=== PATIENT | female | born 1950 | race Caucasian/White ===

== ENCOUNTER → 2017-02-03 | Outpatient (CLI) | payer MEDICARE ==
--- NOTE | 2017-02-03 16:04 | US ---
EXAMINATION TYPE: US venous doppler duplex LE LT DATE OF EXAM: 02/03/2017 3:58 PM COMPARISON: US CLINICAL HISTORY: left lower ext, Pain, M79.672. Left foot pain and swelling SIDE PERFORMED: Left TECHNIQUE: The lower extremity deep venous system is examined utilizing real time linear array sonog ramon with graded compression, doppler sonography and color-flow sonography. VESSELS IMAGED: External Iliac Vein (EIV) Common Femoral Vein Deep Femoral Vein Greater Saphenous Vein * Femoral Vein Popliteal Vein Small Saphenous Vein * Proximal Calf Veins (* superficial vessels) Grayscale, color doppler, spectral doppler imaging performed of the deep veins of the left lower extr emity. There is normal flow, compressibility, vascular waveforms left lower extremity. Left Leg: Negative for DVT Results called to Maria Guadalupe at [facility] at time of exam IMPRESSION: No evidence for DVT at this time.
== END | disposition home or self-care (01) ==
LOC: RADUSWWP 15:41
PROVIDERS: ATTEND Internal Medicine
DX: M79.672 Pain in left foot (principal)

== ENCOUNTER → 2017-02-17 | Outpatient (CLI) | payer MEDICARE ==
--- NOTE | 2017-02-18 09:18 | MM ---
Reason for exam: screening (asymptomatic). Last mammogram was performed 1 year and 11 months ago. History: Patient is postmenopausal and has history of endometrial cancer at age 45. Took hormonal contraceptives for 1 year 6 months beginning at age 19. Taking estrogen for 14 years 11 months beginning at age 45. Physical Findings: A clinical breast exam by your physician is recommended on an annual basis and results should be correlated with mammographic findings. MG Screening Mammo w CAD Bilateral CC and MLO view(s) were taken. Prior study comparison: March 21, 2015, bilateral MG screening mammo w CAD. The breast tissue is heterogeneously dense. This may lower the sensitivity of mammography. Focal asymmetry in the right breat upper outer quadrant is stable. No significant changes when compared with prior studies. ASSESSMENT: Benign, BI-RAD 2 RECOMMENDATION: Routine screening mammogram of both breasts in 1 year.
== END ==
LOC: RADMAMWWP 11:11
PROVIDERS: ATTEND Internal Medicine
DX: Z12.31 Encounter for screening mammogram for malignant neoplasm of breast (principal)

== ENCOUNTER 2017-03-17 09:14 | Day surgery (SDC) | payer MEDICARE ==
[2017-03-15 16:07] VITALS: BMI 25.0
[~2017-03-17 09:14] MED LIST: LACTATED RINGERS 1,000 ML IV SCH; LIDOCAINE 1% 20 ML VIAL (10MG/ML) FOR IV START INTRADERMA PRN
[2017-03-17 09:45] VITALS: TEMP 98.3
[2017-03-17] MEDS ORDERED: fentaNYL (PF) 50 MCG/ML 2 ML AMP ONE (10:21)
[2017-03-17] MEDS ORDERED: MIDAZOLAM 2 MG/2 ML VIAL ONE (10:21)
[2017-03-17] MEDS ORDERED: PROPOFOL 10 MG/ML 20 ML VIAL IV ONE (10:21)
--- NOTE | 2017-03-17 10:40 | P.PCN ---
Date of Procedure: 03/17/17 Preoperative Diagnosis: Postoperative Diagnosis: Procedure(s) Performed: BRIEF HISTORY: Patient is a 66-year-old pleasant white female, scheduled for an elective colonoscopy as a part of screening for colorectal neoplasia. PROCEDURE PERFORMED: Colonoscopy. PREOPERATIVE DIAGNOSIS: Screening for colon cancer. IV sedation per Anesthesia. PROCEDURE: After informed consent was obtained, the patient, was brought into the endoscopy unit. IV sedation was administered by Anesthesia under continuous monitoring. Digital rectal examination was normal. Initially the Olympus CF- 160 flexible video colonoscope was then inserted in the rectum, gradually advanced into the cecum without any difficulty. Careful examination was performed as the scope was gradually being withdrawn. Ileocecal valve and the appendiceal orifice were visualized and appeared normal. Prep was excellent. Mucosa of the cecum, ascending colon, transverse colon, descending colon, sigmoid colon, and rectum appeared normal. Retroflexion was performed in the rectum and no lesions were seen. The patient tolerated the procedure well. IMPRESSION: Normal-appearing colon from rectum to cecum with no evidence of colorectal neoplasia. RECOMMENDATIONS: Findings of this examination were discussed with the patient as well as a family. She was advised to have a repeat screening colonoscopy in 10 years. Implants: Indications for Procedure: Operative Findings: Description of Procedure:
[2017-03-17 10:42] VITALS: RESP 16
[2017-03-17 11:13] VITALS: BP 111/76; PULSE 59
== END 2017-03-17 11:26 | disposition home or self-care (01) ==
LOC: ORWHC2ENDO 09:14
PROVIDERS: ATTEND Internal Medicine Gastroenterology
DX: Z12.11 Encounter for screening for malignant neoplasm of colon (principal); E78.5 Hyperlipidemia, unspecified; E07.9 Disorder of thyroid, unspecified; Z79.2 Long term (current) use of antibiotics; Z79.899 Other long term (current) drug therapy
CPT/HCPCS: J2250; J3010; J2704; G0121

== ENCOUNTER → 2017-04-13 | Outpatient (CLI) | payer MEDICARE ==
[2017-04-13 13:01] LABS: Blood Urea Nitrogen 16 mg/dL (7-17); Non-African American GFR(MDRD) >60 (>60 ml/min/1.73 sqM)
--- NOTE | 2017-04-15 12:56 | MR ---
EXAMINATION TYPE: MR brain wo/w con DATE OF EXAM: 04/13/2017 COMPARISON: Outside brain CT May 20, 2012. MRA brain May 30, 2013. HISTORY: nontraumatic subarachnoid hemorrhage, 5 year check-up hx of aneurysm TECHNIQUE: Multiplanar, multisequence images of the brain and brainstem is performed without and with IV contras t, utilizing 6 mL intravenous Gadavist . FINDINGS: Diffusion weighted images demonstrate no evidence of a recent infarct or other diffusion ab normality. There is no worrisome extra-axial fluid collection. The ventricular system and cisternal spaces are normal in size and appearance. The brain volume is age appropriate. No significant aranda e in ventricular size from outside CT is noted. Artifact from right frontal craniotomy is present. Ar tifact from aneurysm clip right MCA distribution anterior inferior temporal aspect is redemonstrated. There is interval removal of right-sided INSERT OPERATOR shunt catheter. There are focal areas of T2 hyperintensi ty in the deep and periventricular white matter. Lesions are nonspecific in appearance and distributi on but most likely on basis of product of chronic small vessel ischemic change. Midline structures demonstrate normal morphology. The craniocervical junction appears within normal limits. Post contrast images demonstrate no abnormal enhancement. The dural venous sinuses appear pa tent. The visualized sinuses are clear and the globes are intact. IMPRESSION: Artifact from postsurgical changes present. There is mild to moderate white matter change s felt on basis of product of chronic small vessel ischemic change. No suspicious enhancement is note d.
== END | disposition home or self-care (01) ==
LOC: RADMRIMAIN 12:32
PROVIDERS: ATTEND Internal Medicine
DX: I67.82 Cerebral ischemia (principal); Z98.890 Other specified postprocedural states
CPT/HCPCS: 82565; 84520; 70553; 36415; A9581

== ENCOUNTER → 2017-05-12 | Outpatient (CLI) | payer MEDICARE ==
[2017-05-12 16:11] LABS: Blood Urea Nitrogen 15 mg/dL (7-17); Non-African American GFR(MDRD) >60 (>60 ml/min/1.73 sqM)
--- NOTE | 2017-05-12 17:15 | CT ---
EXAMINATION TYPE: CT angio head DATE OF EXAM: 05/12/2017 4:57 PM COMPARISON: NONE HISTORY: Patient has no complaints at time of study. 5 year follow up study post aneurysm clipping. CT DLP: 1928 mGycm Automated exposure control for dose reduction was used. TECHNIQUE: Performed without and with IV Contrast, patient injected with 100 mL of Omnipaque 350. There are 3-D post processed images.. FINDINGS: There is metal artifact from aneurysm clip at the right side of the elem of Patel. There is arteri al flow in the anterior middle and posterior cerebral arteries. There is arterial flow in the vertebr obasilar artery system. There is metal artifact from the clip that obscures the supraclinoid right in ternal carotid artery. I see no sign of an aneurysm. There is no mass effect. There is no evidence of hemodynamically significant stenosis. There is right temporal craniotomy defect. There is some mild hypodensity in the inferior right frontal lobe consistent with encephalomalacia. There is no sign of intracranial hemorrhage. There is normal contrast opacification of the venous sinuses. Ventricles have normal size. IMPRESSION: POSTSURGICAL CHANGES WITH ANEURYSM CLIP ON THE RIGHT SIDE. I SEE NO COMPLICATING PROCESS. STABLE APPE ARANCE OF THE BRAIN COMPARED TO 05/20/2012. MINIMAL ENCEPHALOMALACIA IN THE INFERIOR RIGHT FRONTAL LO BE. NO ANEURYSM SEEN.
== END | disposition home or self-care (01) ==
LOC: RADCTMAIN 15:24
PROVIDERS: ATTEND Internal Medicine
DX: G93.89 Other specified disorders of brain (principal); Z98.890 Other specified postprocedural states
CPT/HCPCS: 82565; 84520; 70496; 36415; Q9967

== ENCOUNTER → 2017-06-09 | Outpatient (CLI) | payer MEDICARE ==
--- NOTE | 2017-06-09 13:41 | XR ---
EXAMINATION TYPE: XR chest 2V DATE OF EXAM: 06/09/2017 COMPARISON: 05/09/2012 HISTORY: Dry cough for 2 months TECHNIQUE: Frontal and lateral views of the chest are obtained. FINDINGS: There is no focal air space opacity, pleural effusion, or pneumothorax seen. The cardiac silhouette size is within normal limits. The osseous structures are intact. Minimal degenerative ch anges of the acromio clavicular joint are seen. IMPRESSION: No acute cardiopulmonary process.
== END | disposition home or self-care (01) ==
LOC: RADXRMAIN 10:51
PROVIDERS: ATTEND Internal Medicine
DX: J20.9 Acute bronchitis, unspecified (principal)
CPT/HCPCS: 71020

== ENCOUNTER → 2018-03-21 | Outpatient (CLI) | payer MEDICARE ==
--- NOTE | 2018-03-21 15:11 | BD ---
EXAMINATION TYPE: Axial Bone Density DATE OF EXAM: 03/21/2018 COMPARISON: Prior DEXA bone scan March 21, 2015 CLINICAL HISTORY: Disorder of bone per order. Height: 5 FT 3 IN Weight: 161 FRAX RISK QUESTIONS: RISK FACTORS HISTORY OF: Family History of Osteoporosis: YES Active: YES Postmenopausal woman: AGE 46 Take estrogen and/or progesterone medications: YES PREMARIN How lon YEARS Lost more than 2 inches in height since high school: YES MEDICATIONS: Thyroid Medications: YES Which medication: SYNTHROID How Long: OVER 30 YEARS Additional Medications: SYNTHROID, PRAVASTATIN Additional History: EXAM MEASUREMENTS: Bone mineral densitometry was performed using the [employer] System. Bone mineral density as measured about the Lumbar spine is: ----- L1-L4(G/cm2): 1.134 T Score Values are as follows: ----- L2: -1.0 ----- L3: -0.8 ----- L4: 1.0 ----- L1-L4: -0.4 Bone mineral density has: INCREASED 6.5% SINCE STUDY 2014 Bone mineral density about the R hip (g/cm2): 0.995 Bone mineral density about the L hip (g/cm2): 1.018 T Score values are as follows: -----R Neck: -0.3 -----L Neck: -0.1 -----R Total: -1.0 -----L Total: -0.6 Bone mineral density has: INCREASED 2.5 %SINCE STUDY 2014 IMPRESSION: Normal (Values between +1 and -1 indicate normal bone mass) range currently. Bone density is increas ed or improved from prior. Consider repeating this study in 5 years or sooner if there is some new cl inical indication. NOTE: T-SCORE=SD OF THE YOUNG ADULT MEAN.
--- NOTE | 2018-03-22 13:52 | MM ---
Reason for exam: screening (asymptomatic). Last mammogram was performed 1 year and 1 month ago. History: Patient is postmenopausal and has history of endometrial cancer at age 45. Took hormonal contraceptives for 1 year 6 months beginning at age 19. Taking estrogen for 14 years 11 months beginning at age 45. Physical Findings: A clinical breast exam by your physician is recommended on an annual basis and results should be correlated with mammographic findings. MG Screening Mammo w CAD Bilateral CC and MLO view(s) were taken. Technologist: RT Delia (R)(M) Prior study comparison: February 17, 2017, bilateral MG screening mammo w CAD. March 21, 2015, bilateral MG screening mammo w CAD. The breast tissue is heterogeneously dense. This may lower the sensitivity of mammography. No significant changes when compared with prior studies. ASSESSMENT: Benign, BI-RAD 2 RECOMMENDATION: Routine screening mammogram of both breasts in 1 year.
== END | disposition home or self-care (01) ==
LOC: RADMAMWWP 13:47
PROVIDERS: ATTEND Internal Medicine
DX: Z12.31 Encounter for screening mammogram for malignant neoplasm of breast (principal); M85.9 Disorder of bone density and structure, unspecified
CPT/HCPCS: 77067; 77080

== ENCOUNTER → 2018-12-06 | Outpatient (CLI) | payer MEDICARE ==
[2018-12-06 10:51] LABS: Basophils # (A) 0.1 k/uL (0-0.2); Basophils % (A) 1 %; Eosinophils # (A) 0.8 k/uL (0-0.7); Eosinophils % (A) 9 %; HCT 39.7 % (34.0-46.0); Lymphocytes # (A) 2.1 k/uL (1.0-4.8); Lymphocytes % (A) 27 %; MCH 31.4 pg (25.0-35.0); MCHC 32.7 g/dL (31.0-37.0); Mean Platelet Volume 8.5; Monocytes # (A) 0.4 k/uL (0-1.0); Monocytes % (A) 5 %; Neutrophils # (A) 4.4 k/uL (1.3-7.7); Neutrophils % (A) 54 %; Platelet Count 323 k/uL (150-450); RBC 4.14 m/uL (3.80-5.40); RDW 13.9 % (11.5-15.5)
[2018-12-06 17:28] LABS: Albumin 3.8 g/dL (3.80-4.90); Albumin/Globulin Ratio 1.73 (1.60-3.17); Anion Gap 7.9 mmol/L (4.00-12.00); Carbon Dioxide 26.1 mmol/L (21.6-31.8); Globulin 2.2 g/dL (1.6-3.3); Potassium 4.7 mmol/L (3.5-5.5); Total Bilirubin 0.3 mg/dL (0.2-1.2)
[2018-12-06 17:32] LABS: T4, Free (Free Thyroxine) 1.3 ng/dL (0.80-1.80)
[2018-12-06 19:09] LABS: Hemoglobin A1C 5.9 % (4.0-6.0)
== END | disposition home or self-care (01) ==
LOC: LABWHC1 09:29
PROVIDERS: ATTEND Internal Medicine
DX: E78.2 Mixed hyperlipidemia (principal); E03.9 Hypothyroidism, unspecified; E55.9 Vitamin D deficiency, unspecified; J44.9 Chronic obstructive pulmonary disease, unspecified; J30.9 Allergic rhinitis, unspecified
CPT/HCPCS: 36415; 80053; 80061; 82306; 82550; 83036; 84439; 84443; 85025

== ENCOUNTER → 2019-02-15 | Outpatient (CLI) | payer MEDICARE ==
--- NOTE | 2019-02-15 14:05 | XR ---
EXAMINATION TYPE: XR lumbar spine 2 or 3V DATE OF EXAM: 02/15/2019 CLINICAL HISTORY: pain TECHNIQUE: Three views of the lumbar spine are submitted. COMPARISON: None. FINDINGS: There are 5 lumbar type vertebral bodies identified. The lumbar spine shows satisfactory alignment w ithout evidence of acute fracture or dislocation. Vertebral body heights are within normal limits. Moderate degenerative disc space narrowing at L4-5 and L5-S1. Facet joint arthropathy. Mild curvature convex to the right. Moderate fecal stasis noted. The overlying soft tissue appears unremarkable. IMPRESSION: No acute fracture or dislocation is seen in the lumbar spine. ICD 10 NO FRACTURE, INITIAL EVALUATION
== END | disposition home or self-care (01) ==
LOC: RADXRMAIN 11:10
PROVIDERS: ATTEND Internal Medicine
DX: M47.897 Other spondylosis, lumbosacral region (principal)
CPT/HCPCS: 72100

== ENCOUNTER → 2019-03-13 | Outpatient (CLI) | payer MEDICARE ==
--- NOTE | 2019-03-13 11:21 | XR ---
EXAMINATION TYPE: XR Hip Complete RT DATE OF EXAM: 03/13/2019 COMPARISON: NONE HISTORY: Pain TECHNIQUE: 2 views submitted FINDINGS: There is no evidence of erosive change or acute fracture. Mild concentric narrowing the joint space. Calcifications along the greater trochanter. Calcifications in the pelvis noted. IMPRESSION: 1. Mild arthropathy. There is calcification along the greater trochanter which can be associated with calcific tendinosis or trochanteric bursitis..
== END | disposition home or self-care (01) ==
LOC: RADXRMAIN 10:43
PROVIDERS: ATTEND Internal Medicine
DX: M16.11 Unilateral primary osteoarthritis, right hip (principal); M25.851 Other specified joint disorders, right hip
CPT/HCPCS: 73502

== ENCOUNTER → 2019-06-13 | Outpatient (CLI) | payer MEDICARE ==
--- NOTE | 2019-06-13 13:54 | XR ---
Cervical spine HISTORY: Radiculopathy and spondylosis 5 views of the cervical spine Comparison prior exam 03/30/2012 Alignment is essentially stable, there is an anterolisthesis grade 1 C3-4, C4-5, C6-7 and loss of dis c height present at C5-6 greater than C4-5, there is multilevel spondylosis. Cervical vertebral jose s show preserved height. Bone mineralization is reduced. Prevertebral soft tissues are normal. Facet arthropathy changes are present. There is foraminal encroachment on the right at C3-4, C4-5 and C5-6, left at C5-6 due to uncovertebral joint hypertrophy. Loss of the normal cervical lordosis. IMPRESSION: Degenerative disc disease, facet arthropathy similar to prior exam.
== END | disposition home or self-care (01) ==
LOC: RADXRMAIN 11:50
PROVIDERS: ATTEND Internal Medicine
DX: M50.10 Cervical disc disorder with radiculopathy, unspecified cervical region (principal); M46.92 Unspecified inflammatory spondylopathy, cervical region; R92.8 Other abnormal and inconclusive findings on diagnostic imaging of breast
CPT/HCPCS: 72050

== ENCOUNTER → 2019-06-21 | Outpatient (CLI) | payer MEDICARE ==
--- NOTE | 2019-06-21 16:07 | MR ---
MRI CERVICAL SPINE: CLINICAL HISTORY: Spondylosis with radiculopathy. Neck pain and stiffness for 2 years. TECHNIQUE: Multiplanar, multisequence imaging of the cervical spine is performed without IV contrast. COMPARISON: Prior MRI cervical spine March 10, 2016. FINDINGS: Sagittal images of the cervical spine show the craniocervical junction to remain within nor mal limits. The cervical and upper thoracic spinal cord remains normal in course, caliber, and signa l. There is persistent grade 1 retrolisthesis C5 on C6. There is persistent moderate disc space narro wing and mild spurring C5-C6 level. Vertebral body heights are maintained. The bone marrow signal in tensity is within normal limits. Axial images at C2-C3 level are thought to show stable mild uncovertebral facet degenerative changes bilaterally. Axial images at C3-C4 level show uncovertebral facet degenerative changes bilaterally causing mild ri ght-sided neural foraminal narrowing. No significant change from prior. Axial images at C4-C5 level show posterior broad-based disc protrusion and uncovertebral facet degene rative changes, there is effacement of the anterior thecal sac and mild facet neural foraminal narrow ing redemonstrated. No significant change from prior. Axial images at C5-C6 level shows spondylolisthesis and uncovertebral facet degenerative changes effa cing anterior thecal sac and causing moderate bilateral neural foraminal narrowing. No significant ch keila from prior. Axial images at C6-C7 level shows left paracentral disc protrusion effacing the anterolateral thecal sac and causing mild bilateral neural foraminal narrowing. No significant change from prior. Axial images at C7-T1 level are felt to remain within normal limits. IMPRESSION: Multilevel degenerative changes as detailed above most prominent at C5-C6 level without s ignificant change or progression from 2016 MRI noted
== END | disposition home or self-care (01) ==
LOC: RADMRIMAIN 06:15
PROVIDERS: ATTEND Internal Medicine
DX: M47.22 Other spondylosis with radiculopathy, cervical region (principal)
CPT/HCPCS: 72141

== ENCOUNTER → 2021-04-28 | Outpatient (CLI) | payer MEDICARE ==
--- NOTE | 2021-04-28 14:20 | XR ---
Thoracic spine HISTORY: M47.816, back pain 3 views of the thoracic spine Degenerative disc changes are noted incidentally in the cervical spine. Thoracic vertebral bodies show preserved height, there is a mild spinal curvature. Bone mineralizatio n is reduced. There is multilevel spondylosis. Loss of disc height and intervertebral levels is noted . IMPRESSION: Osteopenia and degenerative disc disease.
--- NOTE | 2021-04-28 14:22 | XR ---
Lumbar spine HISTORY: Back pain 3 views of lumbar spine are correlation a prior exam 02/15/2019 There is no significant interval change. Lumbar vertebral bodies show stable height. There is anterol isthesis grade 1 L4-5. Bone mineralization is reduced. Sclerosis is present in the posterior elements of the lower lumbar spine. Dense vascular calcifications are present within the aortoiliac distribut ion. Loss of disc height is present at the intervertebral levels. There is multilevel spondylosis. Ab normal vascular calcifications present within the pelvis. IMPRESSION: Degenerative disc disease, facet arthropathy with spondylolisthesis L4-5. Osteopenia.
== END | disposition home or self-care (01) ==
LOC: RADXRMAIN 11:07
PROVIDERS: ATTEND Internal Medicine
DX: M51.34 Other intervertebral disc degeneration, thoracic region (principal); M85.88 Other specified disorders of bone density and structure, other site; M51.36 Other intervertebral disc degeneration, lumbar region; M47.816 Spondylosis without myelopathy or radiculopathy, lumbar region; M43.16 Spondylolisthesis, lumbar region
CPT/HCPCS: 72070; 72100

== ENCOUNTER → 2021-05-13 | Outpatient (CLI) | payer MEDICARE ==
--- NOTE | 2021-05-13 14:40 | BD ---
EXAMINATION TYPE: Axial Bone Density DATE OF EXAM: 05/13/2021 COMPARISON: 03/21/2018 CLINICAL HISTORY: Postmenopausal female. Age related osteoporosis. Height: 62.7 IN Weight: 164 LBS RISK FACTORS HISTORY OF: Active: YES Postmenopausal woman: TOTAL HYST AGE 43 Take estrogen and/or progesterone medications: YES How lon+ YEARS MEDICATIONS: Thyroid Medications: YES Which medication: Synthroid How Lon+ YEARS Additional Medications: SYNTHROID, CALCIUM, VIT D, ESTROGEN, PRAVASTATIN EXAM MEASUREMENTS: Bone mineral densitometry was performed using the GPal System. Bone mineral density as measured about the Lumbar spine is: ----- L1-L4(G/cm2): 1.169 T Score Values are as follows: ----- L2: -0.9 ----- L3: -0.1 ----- L4: 0.9 ----- L1-L4: -0.1 Bone mineral density has: Increased 2.9% since study of: 03/21/2018 Bone mineral density about the R hip (g/cm2): 0.972 Bone mineral density about the L hip (g/cm2): 1.026 T Score values are as follows: -----R Neck: -0.5 -----L Neck: -0.1 -----R Total: -1.0 -----L Total: -0.6 Bone mineral density has: Increased 0.8% since study of: 03/21/2018 IMPRESSION: Normal (Values between +1 and -1 indicate normal bone mass). Consider repeating this study in 5 year s or sooner if there is some new clinical indication. NOTE: T-SCORE=SD OF THE YOUNG ADULT MEAN.
--- NOTE | 2021-05-15 14:07 | MM ---
Reason for exam: screening (asymptomatic). Last mammogram was performed 3 years and 2 months ago. History: Patient is postmenopausal and has history of endometrial cancer at age 45. Took hormonal contraceptives for 1 year 6 months beginning at age 19. Taking estrogen for 25 years beginning at age 45. Physical Findings: A clinical breast exam by your physician is recommended on an annual basis and results should be correlated with mammographic findings. MG Screening Mammo w CAD Bilateral CC and MLO view(s) were taken. Prior study comparison: March 21, 2018, bilateral MG screening mammo w CAD. February 17, 2017, bilateral MG screening mammo w CAD. The breast tissue is heterogeneously dense. This may lower the sensitivity of mammography. There is chronic nodularity in the right breast. No significant changes when compared with prior studies. ASSESSMENT: Benign, BI-RAD 2 RECOMMENDATION: Routine screening mammogram of both breasts in 1 year.
== END | disposition home or self-care (01) ==
LOC: RADMAMWWP 12:56
PROVIDERS: ATTEND Internal Medicine
DX: Z12.31 Encounter for screening mammogram for malignant neoplasm of breast (principal); Z78.0 Asymptomatic menopausal state; Z85.42 Personal history of malignant neoplasm of other parts of uterus
CPT/HCPCS: 77067; 77080

== ENCOUNTER 2021-07-26 14:19 | Emergency (ER) | payer MEDICARE ==
[2021-07-26 15:58] LABS: Appearance,Urine Turbid (Clear); Bilirubin,Urine Negative (Negative); Blood,Urine Large (Negative); Color,Urine Red; Glucose,Urine (UA) Negative (Negative); Ketones,Urine Negative (Negative); Leukocyte Esterase,Urine Large (Negative); Nitrite,Urine Negative (Negative); PH, Urine 5.5 (5.0-8.0); Protein,Urine 2+ (Negative); RBC,Urine >182 /hpf (0-5); Specific Gravity,Urine 1.018 (1.001-1.035); Urobilinogen,Urine <2.0 mg/dL (<2.0); WBC,Urine >182 /hpf (0-5)
--- NOTE | 2021-07-26 16:59 | ED ---
General Adult HPI - General Chief complaint: Urogenital Stated complaint: Bladder Infection Time Seen by Provider: 07/26/21 16:45 Source: patient, RN notes reviewed, old records reviewed Mode of arrival: ambulatory Limitations: no limitations - History of Present Illness Initial comments: 70-year-old well-appearing female, alert and oriented x4, presents to the emergency room with complaints of dysuria that started this morning. She states that she noticed some blood in the urine and has been having frequency in small amounts. She denies any fevers or back pain. No fevers, back pain, nausea, vomiting or diarrhea. She states that she has had urinary tract infections in the past and feels similar. -: days(s) (1) Location: pelvis Severity scale (1-10): 2 Quality: burning (During urination) Associated Symptoms: denies other symptoms Treatments Prior to Arrival: none - Related Data Home Medications Medication Instructions Recorded Confirmed Estrogens, Conjugated [Premarin] 0.9 mg PO HS 03/15/17 03/17/17 Levothyroxine Sodium [Synthroid] 125 mcg PO HS 03/15/17 03/17/17 Pravastatin Sodium [Pravachol] 80 mg PO HS 03/15/17 03/17/17 Sulfamethox-Tmp 800-160Mg [Bactrim 1 tab PO Q12HR 03/16/17 03/17/17 DS 800-160 mg] Previous Rx's Medication Instructions Recorded Sulfamethox-Tmp 800-160Mg [Bactrim 1 each PO Q12HR 5 Days #10 tab 07/26/21 Ds] Allergies Allergy/AdvReac Type Severity Reaction Status Date / Time No Known Allergies Allergy Verified 07/26/21 15:38 Review of Systems ROS Statement: Those systems with pertinent positive or pertinent negative responses have been documented in the HPI. ROS Other: All systems not noted in ROS Statement are negative. Past Medical History Past Medical History: Cancer, Thyroid Disorder Additional Past Medical History / Comment(s): RUPTURED BRAIN ANEURYSM, OVARIAN CANCER History of Any Multi-Drug Resistant Organisms: None Reported Past Surgical History: Hysterectomy, Tonsillectomy Additional Past Surgical History / Comment(s): BSO, BRAIN SURGERY-HAS A CLIP IN, Past Anesthesia/Blood Transfusion Reactions: No Reported Reaction Past Psychological History: No Psychological Hx Reported Smoking Status: Former smoker Past Alcohol Use History: Occasional Past Drug Use History: None Reported - Past Family History Mother Family Medical History: No Reported History Father Family Medical History: Deep Vein Thrombosis (DVT) General Exam Limitations: no limitations General appearance: alert, in no apparent distress Head exam: Present: atraumatic, normocephalic, normal inspection Eye exam: Present: normal appearance, EOMI Neck exam: Present: normal inspection, full ROM. Absent: tenderness, meningismus, lymphadenopathy Respiratory exam: Present: normal lung sounds bilaterally. Absent: respiratory distress, wheezes, rales, rhonchi, stridor Cardiovascular Exam: Present: regular rate, normal rhythm, normal heart sounds. Absent: systolic murmur, diastolic murmur, rubs, gallop, clicks Back exam: Absent: tenderness, CVA tenderness (R), CVA tenderness (L) Neurological exam: Present: alert, oriented X3, normal gait Psychiatric exam: Present: normal affect, normal mood Skin exam: Present: warm, dry, intact, normal color. Absent: rash, cyanosis, diaphoretic Course Vital Signs 07/26/21 15:35 Temperature 98.2 F Pulse Rate 75 Respiratory 16 Rate Blood Pressure 134/66 O2 Sat by Pulse 99 Oximetry Medical Decision Making - Medical Decision Making 70-year-old well-appearing female presents emergency room with complaints of dysuria started this morning with hematuria. Patient states that she has had history of urinary tract infections in the past. She says that she has done well on Bactrim. She denies any fevers, abdominal pain, nausea, vomiting or diarrhea. She has no CVA tenderness. Urinalysis shows greater than 182 WBCs and will be treated with Bactrim and directed to follow up with her primary care doctor this week. Patient was offered Pyridium and declined. Return to the emergency room with any new or worsening symptoms. Case discussed with Dr. Dixon - Lab Data Lab Results 07/26/21 Range/Units 15:40 Urine Color Red Urine Appearance Turbid H (Clear) Urine pH 5.5 (5.0-8.0) Ur Specific [place] 1.018 (1.001-1.035) Urine Protein 2+ H (Negative) Urine Glucose (UA) Negative (Negative) Urine Ketones Negative (Negative) Urine Blood Large H (Negative) Urine Nitrite Negative (Negative) Urine Bilirubin Negative (Negative) Urine Urobilinogen <2.0 (<2.0) mg/dL Ur Leukocyte Esterase Large H (Negative) Urine RBC >182 H (0-5) /hpf Urine WBC >182 H (0-5) /hpf Urine WBC Clumps Many H (None) /hpf Disposition Clinical Impression: Urinary tract infection Disposition: HOME SELF-CARE Condition: Good Instructions (If sedation given, give patient instructions): Urinary Tract Infection in Women (ED) Additional Instructions: Take antibiotics as prescribed, increase your fluid intake. Follow-up with the primary care doctor next week. Return to the emergency room with any new or worsening symptoms. Prescriptions: Sulfamethox-Tmp 800-160Mg [Bactrim Ds] 1 each PO Q12HR 5 Days #10 tab Is patient prescribed a controlled substance at d/c from ED?: No Referrals: Chelsie Key MD [Primary Care Provider] - 1-2 days Time of Disposition: 16:59
[2021-07-26 17:32] VITALS: BP 141/81; PULSE 71; RESP 18; TEMP 98.1
[2021-07-26] MEDS: SULFAMETHOX-TMP 800-160MG 1 EACH TAB PO STA (17:42)
[2021-07-26] MEDS: SULFAMETH-TMP DS STARTER PACK 2 TAB BTL PO STA (17:42)
== END 2021-07-26 17:49 | disposition home or self-care (01) ==
LOC: EC 14:19
DX: N39.0 Urinary tract infection, site not specified (principal); Z87.891 Personal history of nicotine dependence; Z79.890 Hormone replacement therapy; Z79.899 Other long term (current) drug therapy
CPT/HCPCS: 81001; 87086; 99283

== ENCOUNTER 2021-08-22 07:35 | Day surgery (SDC) | payer MEDICARE ==
[2021-08-19 10:17] VITALS: BMI 22.6
[~2021-08-22 07:35] MED LIST changes: -LIDOCAINE 1% 20 ML VIAL (10MG/ML) FOR IV START INTRADERMA PRN
[2021-08-22 08:27] VITALS: RESP 16; TEMP 97.5
[2021-08-22] MEDS ORDERED: LIDOCAINE 1% (10MG/ML) FOR IV START INTRADERMA ONE (08:29)
[2021-08-22] MEDS ORDERED: PROPOFOL 10 MG/ML 20 ML VIAL IV ONE (09:34)
[2021-08-22] MEDS ORDERED: LIDOCAINE 1% INJ 10MG/ML (20 ML MDV) ONE (09:34)
--- NOTE | 2021-08-22 09:56 | P.PCN ---
Date of Procedure: 08/22/21 Procedure(s) Performed: BRIEF HISTORY: Patient is a 68-year-old pleasant white female scheduled for an elective colonoscopy as a part of screening for colorectal neoplasiacolorectal neoplasia. Her last colonoscopy was 10 years ago. PROCEDURE PERFORMED: Colonoscopy snare polypectomy. PREOPERATIVE DIAGNOSIS: Screening for colon cancer. IV sedation per Anesthesia. PROCEDURE: After informed consent was obtained, the patient, was brought into the endoscopy unit. IV sedation was administered by Anesthesia under continuous monitoring. Digital rectal examination was normal. Initially the Olympus CF-160 flexible video colonoscope was then inserted in the rectum, gradually advanced into the cecum without any difficulty. Careful examination was performed as the scope was gradually being withdrawn. Ileocecal valve and the appendiceal orifice were visualized and appeared normal. Prep was excellent. Mucosa of the cecum, ascending colon, transverse colon, descending colon, appeared normal. In the sigmoid colon there were 2 polyps measuring 3 mm and 5 mm both of which were removed by snare polypectomy. Rest of the sigmoid colon, and rectum appeared normal. Retroflexion was performed in the rectum and no lesions were seen. The patient tolerated the procedure well. IMPRESSION: 3 mm and 5 mm sigmoid: Polyp status post polypectomy Rest of the colon appeared normal RECOMMENDATIONS: Findings of this examination were discussed with the patient as well as a family. She was advised to follow with the biopsy results. If the biopsy results adenoma she can have a repeat colonoscopy in 5 years.
[2021-08-22 10:19] VITALS: BP 123/75; PULSE 58
== END 2021-08-22 10:34 | disposition home or self-care (01) ==
LOC: ORWHC2ENDO 07:35
PROVIDERS: ATTEND Internal Medicine Gastroenterology
DX: Z12.11 Encounter for screening for malignant neoplasm of colon (principal); D12.5 Benign neoplasm of sigmoid colon; K21.9 Gastro-esophageal reflux disease without esophagitis; E07.9 Disorder of thyroid, unspecified; Z86.79 Personal history of other diseases of the circulatory system; Z79.899 Other long term (current) drug therapy; Z79.890 Hormone replacement therapy; Z97.2 Presence of dental prosthetic device (complete) (partial)
CPT/HCPCS: 88305; 45385; J2001; J2704

== ENCOUNTER → 2022-01-02 | Outpatient (CLI) | payer MEDICARE ==
--- NOTE | 2022-01-02 10:22 | CT ---
EXAMINATION TYPE: CT brain wo/w con DATE OF EXAM: 01/02/2022 COMPARISON: Prior CTA had May 12, 2017 HISTORY: Hx of brain aneurysm. Hx of sx to brain in 2012. Patient suffering from memory loss CT DLP: 2180.8 mGycm Automated exposure control for dose reduction was used. CONTRAST: CT scan of the head is performed without and with IV Contrast, patient injected with 70ML mL of Isovu e 300. FINDINGS: Persistent right frontal craniotomy and inferior temporal craniectomy changes. No acute int racranial hemorrhage or midline shift. Mild ventricular and sulcal prominence redemonstrated. Persist ent artifact from aneurysm clip right suprasellar level. There is focal encephalomalacia involving in ferior right frontal lobe redemonstrated. Mild to moderate low-attenuation in the deep and periventri cular white matter. No enhancing masses are seen. The globes are intact and the visualized sinuses ar e clear. IMPRESSION: Extensive surgical change redemonstrated. Mild diffuse cerebral atrophy and moderate floral designer fredi small vessel ischemic change redemonstrated. No abnormal enhancing masses.
== END | disposition home or self-care (01) ==
LOC: RADCTMAIN 08:17
PROVIDERS: ATTEND Internal Medicine
DX: R41.3 Other amnesia (principal); I67.82 Cerebral ischemia
CPT/HCPCS: 82565; 84520; 70470; 36415; Q9967

== ENCOUNTER → 2022-01-09 | Outpatient (CLI) | payer MEDICARE ==
--- NOTE | 2022-01-09 13:41 | US ---
EXAMINATION TYPE: US carotid duplex BILAT DATE OF EXAM: 01/09/2022 COMPARISON: NONE CLINICAL HISTORY: I67.1 BRAIN ANEURYSM I73.9 PVD. EXAM MEASUREMENTS: RIGHT: Peak Systolic Velocity (PSV) cm/sec ----- Right CCA: 69.4 ----- Right ICA: 98.0 ----- Right ECA: 101.8 ICA/CCA ratio: 1.4 RIGHT: End Diastole cm/sec ----- Right CCA: 16.2 ----- Right ICA: 17.8 ----- Right ECA: 14.5 LEFT: Peak Systolic Velocity (PSV) cm/sec ----- Left CCA: 61.0 ----- Left ICA: 90.5 ----- Left ECA: 29.3 ICA/CCA ratio: 1.5 LEFT: End Diastole cm/sec ----- Left CCA: 14.0 ----- Left ICA: 29.3 ----- Left ECA: 8.3 VERTEBRALS (direction of flow): Right Vertebral: Antegrade Left Vertebral: Antegrade Rhythm: Normal Mild atherosclerotic changes with no significant velocity increases seen bilaterally. Some plaquing is present within the left carotid system. IMPRESSION: 1. Atheromatous plaquing without significant flow-limiting stenosis. Criteria for Assigning % of Stenosis / Diameter reduction (Estimation based on the indirect measurements of the internal carotid artery velocities (ICA PSV). 1. Normal (no stenosis)=ICA PSV < 125 cm/s: ratio < 2.0: ICA EDV<40 cm/s. 2. Less than 50% stenosis=ICA PSV < 125 cm/s: ratio < 2.0: ICA EDV<40 cm/s. 3. 50 to 69% stenosis=ICA PSV of 125 to 230 cm/s: ration 2.0 ? 4.0: ICA EDV 40-100 cm/s. 4. Greater than 70% stenosis to near occlusion= ICA PSV > 230 cm/s: ratio > 4.0: ICA EDV > 100 cm/s. 5. Near occlusion= ICA PSV velocities may be low or undetectable: variable ratio and ICA EDV. 6. Total occlusion=unable to detect flow.
--- NOTE | 2022-01-10 10:52 | CA ---
Transthoracic Echo Report Name: Connie Cerrato Age: 71 Gender: F : 1950 Exam Date: 01/09/2022 14:14 Exam Location: [facility] Ht (in): 65 Wt (lb): 140 Ordering Physician: Chelsie Key MD Attending/Referring Phys: Client Evaluator Estefania Martin RDCS Procedure CPT: Indications: I67.1 Cardiac Hx: Technical Quality: Good Contrast 1: N/A Total Dose (mL): Contrast 2: Total Dose (mL): MEASUREMENTS (Male / Female) Normal Values 2D ECHO LV Diastolic Diameter PLAX 4.4 cm 4.2 - 5.9 / 3.9 - 5.3 cm LV Systolic Diameter PLAX 3.4 cm IVS Diastolic Thickness 0.9 cm 0.6 - 1.0 / 0.6 - 0.9 cm LVPW Diastolic Thickness 1.0 cm 0.6 - 1.0 / 0.6 - 0.9 cm LV Relative Wall Thickness 0.4 RV Internal Dim ED PLAX 2.0 cm LA Volume 40.4 cm??? 18 - 58 / 22 - 52 cm??? M-MODE Aortic Root Diameter MM 2.8 cm LA Systolic Diameter MM 3.6 cm LA Ao Ratio MM 1.3 MV E Point Septal Separation 0.4 cm AV Cusp Separation MM 1.3 cm DOPPLER MV Area PHT 3.2 cm??? Mitral E Point Velocity 73.9 cm/s Mitral A Point Velocity 85.8 cm/s Mitral E to A Ratio 0.9 MV Deceleration Time 235.6 ms MV E' Velocity 7.1 cm/s Mitral E to MV E' Ratio 10.4 TR Peak Velocity 250.7 cm/s TR Peak Gradient 25.1 mmHg Right Ventricular Systolic Press 30.1 mmHg FINDINGS Left Ventricle Normal left ventricular size, wall thickness, systolic function with no obvious regional wall motion abnormalities. The ejection fraction is visually estimated at 50-55 %. Right Ventricle The right ventricle is normal in size and function. Right Atrium The right atrium is normal in size. Left Atrium The left atrium is normal in size. Mitral Valve Structurally normal mitral valve without significant stenosis or prolapse. There is no mitral regurgitation. Aortic Valve Structurally normal aortic valve without significant sclerosis or stenosis. There is no aortic regurgitation. Tricuspid Valve Structurally normal tricuspid valve without significant stenosis. Pulmonary artery systolic pressure is normal. Pulmonic Valve Structurally normal pulmonic valve without significant stenosis. There is no pulmonic regurgitation. Pericardium Normal pericardium without effusion. Aorta Normal aortic root dimension. CONCLUSIONS Normal LV size and systolic function Previewed by: Dr. Chuck Miranda MD (Electronically Signed) Final Date: 10 January 2022 10:51
--- NOTE | 2022-01-16 15:39 | US ---
EXAMINATION TYPE: US arterial LE single level DATE OF EXAM: 01/09/2022 2:12 PM CLINICAL HISTORY: I67.1 BRAIN ANEURYSM I73.9 PVD. History of TIA/CVA. Doppler Waveforms: Right: Monophasic to biphasic Left: Monophasic to biphasic Pulse Volume Recording: Dampened bilaterally Pressure Gradients: Ankle-Brachial Indices: Right: 0.96 Left: 0.99 Toe Brachial Indices: Right: 0.94 Left: 0.66 IMPRESSION: Loss of phasicity may be technical. Cannot exclude significant stenosis bilaterally desp ite normal ALLISON and TBI values. Follow-up advised.
== END | disposition home or self-care (01) ==
LOC: RADUSWWP 12:45
PROVIDERS: ATTEND Internal Medicine
DX: I65.23 Occlusion and stenosis of bilateral carotid arteries (principal); I73.9 Peripheral vascular disease, unspecified
CPT/HCPCS: 93306; 93880; 93922

== ENCOUNTER → 2022-01-29 | Outpatient (CLI) | payer MEDICARE ==
[2022-01-29 14:36] LABS: African American GFR (CKD) >90 (>60 ml/min/1.73 sqM); Blood Urea Nitrogen 16 mg/dL (7-17); Non-African American GFR(CKD) 79 (>60 ml/min/1.73 sqM)
--- NOTE | 2022-01-30 16:33 | CT ---
EXAMINATION TYPE: CT angio abd aorta w/Runoff DATE OF EXAM: 01/29/2022 INDICATION: Peripheral artery disease CT DLP: 1370.7 mGy.cm Automated Exposure Control for Dose Reduction was Utilized. TECHNIQUE AND CONTRAST: CT scan of the abdomen, pelvis and lower extremities is performed with IV Contrast, patient injected with 125 mL of Isovue 370. 3-D reconstruction images were generated on an independent workstation and reviewed. COMPARISON: No previous CT scan is available for comparison FINDINGS: Scattered arterial atherosclerotic calcifications. No significant stenosis, occlusion or dissection o f the abdominal aorta. Mild stenosis of the origins of the celiac trunk and the superior mesenteric a rtery yet patent distally. 2 arteries supplying each kidney, without significant stenosis or occlusio n. Opacified inferior mesenteric artery. Severe stenosis of the origin and proximal portion of the right common iliac artery by calcified athe romatous plaques without complete occlusion. Atherosclerotic left common iliac artery, bilateral inte rnal and external iliac arteries without significant stenosis or occlusion. Atherosclerotic right common femoral artery without significant stenosis or occlusion. Unremarkable r ight deep femoral artery and right superficial femoral artery without significant stenosis or occlusi on. Mild atherosclerotic changes and calcifications of the right popliteal artery without significant stenosis or occlusion. Opacified right leg arteries down to the ankle. Opacified right dorsalis pedi s and medial plantar arteries. Atherosclerotic calcifications of the left common femoral artery without significant stenosis or occl usion. Unremarkable left deep femoral artery. Mild atherosclerotic calcifications/plaques of the infe rior aspect of the left superficial femoral artery causing about 50% stenosis. Unremarkable left popl iteal artery. Opacified left leg arteries down to the ankle. Opacified left dorsalis pedis and left m edial plantar arteries. Focal cortical defect at the upper pole of right kidney likely representing sequela of previous infar ct/infection. Left simple renal cysts without suspicious feature. Questionable small sliding hiatal h ernia. Fecal loading of the colon. Degenerative changes of the symphysis pubis with multilevel lumbar facet osteoarthropathy mainly inferiorly. Soft tissue swelling of the right leg inferiorly with subc utaneous fat stranding and reactive fluid. IMPRESSION: Severe stenosis of the origin and the proximal portion of the right common iliac artery by calcified atheromatous plaques without complete occlusion. Other scattered atherosclerotic changes and incident al findings as detailed above.
== END | disposition home or self-care (01) ==
LOC: RADCTMAIN 13:49
PROVIDERS: ATTEND Internal Medicine
DX: I73.9 Peripheral vascular disease, unspecified (principal); I65.23 Occlusion and stenosis of bilateral carotid arteries
CPT/HCPCS: 82565; 84520; 75635; 36415; Q9967

== ENCOUNTER 2022-11-10 09:45 | Emergency (ER) | payer MEDICARE ==
--- NOTE | 2022-11-10 10:06 | ED ---
URI HPI - General Chief Complaint: Upper Respiratory Infection Stated Complaint: Sore throat,Fever Time Seen by Provider: 11/10/22 09:51 Source: patient, family, RN notes reviewed, old records reviewed Mode of arrival: ambulatory Limitations: no limitations - History of Present Illness Initial Comments: This is a nontoxic-appearing 72-year-old female that presents to the emergency room with complaints of 3 days of upper respiratory symptoms. States no fevers, but is complaining of nonproductive cough with sore throat and tenderness to left side of her neck. No known sick contacts. MD Complaint: cough, sore throat, other (chills) -: days(s) (3) Severity scale (1-10): 3 Associated Symptoms: chills, sore throat, cough - Related Data Home Medications Medication Instructions Recorded Confirmed Levothyroxine Sodium [Synthroid] 125 mcg PO HS 03/15/17 08/19/21 Pravastatin Sodium [Pravachol] 80 mg PO HS 03/15/17 08/19/21 Ascorbic Acid [Vitamin C] 500 mg PO DAILY 08/19/21 08/19/21 Calcium/Magnesium/Zinc 1 each PO DAILY 08/19/21 08/19/21 [Jlxlzoq-Rmhqsrtzx-Ceub Tablet] Cholecalciferol [Vitamin D3 (25 25 mcg PO DAILY 08/19/21 08/19/21 Mcg = 1000 Iu)] Multivitamins, Thera [Multivitamin 1 tab PO DAILY 08/19/21 08/19/21 (formulary)] estradioL [Estrace] 0.5 mg PO Q48H 08/19/21 08/19/21 Allergies Allergy/AdvReac Type Severity Reaction Status Date / Time No Known Allergies Allergy Verified 11/10/22 09:50 Review of Systems ROS Statement: Those systems with pertinent positive or pertinent negative responses have been documented in the HPI. ROS Other: All systems not noted in ROS Statement are negative. Past Medical History Past Medical History: Cancer, Thyroid Disorder Additional Past Medical History / Comment(s): RUPTURED BRAIN ANEURYSM, OVARIAN CANCER History of Any Multi-Drug Resistant Organisms: None Reported Past Surgical History: Hysterectomy, Tonsillectomy Additional Past Surgical History / Comment(s): BSO, BRAIN SURGERY-HAS A CLIP IN, Past Anesthesia/Blood Transfusion Reactions: No Reported Reaction Past Psychological History: No Psychological Hx Reported Smoking Status: Never smoker Past Alcohol Use History: Occasional Past Drug Use History: None Reported - Past Family History Mother Family Medical History: No Reported History Father Family Medical History: Deep Vein Thrombosis (DVT) General Exam Limitations: no limitations General appearance: alert, in no apparent distress Head exam: Present: atraumatic, normocephalic Eye exam: Present: normal appearance. Absent: scleral icterus, conjunctival injection, periorbital swelling ENT exam: Present: normal oropharynx, mucous membranes moist Expanded Mouth exam: Present: tongue normal, tongue elevation. Absent: drooling, trismus, muffled voice Throat exam: negative: tonsillomegaly, tonsillar exudate, R peritonsillar mass, L peritonsillar mass Neck exam: Present: tenderness, lymphadenopathy (left anterior) Respiratory exam: Present: normal lung sounds bilaterally. Absent: respiratory distress, wheezes, rales, rhonchi, stridor, chest wall tenderness, accessory muscle use Cardiovascular Exam: Present: regular rate GI/Abdominal exam: Present: soft Extremities exam: Present: normal capillary refill. Absent: pedal edema Neurological exam: Present: alert, oriented X3 Psychiatric exam: Present: normal affect, normal mood Skin exam: Present: warm, dry, normal color. Absent: cyanosis, diaphoretic, petechiae, pallor Course Vital Signs 11/10/22 11/10/22 09:47 11:32 Temperature 98.9 F 98.1 F Pulse Rate 86 81 Respiratory 20 16 Rate Blood Pressure 133/79 135/64 O2 Sat by Pulse 99 Oximetry Medical Decision Making - Medical Decision Making Patient offered pain medication upon arrival and declined. Due to complaints of chest tightness and cough EKG performed showing sinus rhythm with sinus arrhythmia, ventricular rate 77, IA interval 0.154, QRS 0.103, QTC 0.367, normal axis. No old EKG to compare Chest x-ray interpreted by me shows no evidence of focal consolidation, trachea is midline. No free air. Radiologist's interpretation no evidence for acute pulmonary disease Viral swabs negative. Patient states that she was outside in the yard and stirred up some pollen, thinks maybe be related. She was directed to try loratadine and Flonase. Follow-up with her primary care doctor this week. Return to the emergency room with any new or concerning symptoms. She is agreeable to this plan of care. Case discussed with Dr. Bettencourt. Was pt. sent in by a medical professional or institution (, [facility], CHAIN MACHINE OPERATOR, urgent care, hospital, or detention...) When possible be specific @ -No Did you speak to anyone other than the patient for history (EMS, parent, family, police, friend...)? What history was obtained from this source @ -No Did you review nursing and triage notes (agree or disagree)? Why? @ -I reviewed and agree with nursing and triage notes Were old charts reviewed (outside hosp., previous admission, EMS record, old EKG, old radiological studies, urgent care reports/EKG's, detention records)? Report findings @ -No old charts were reviewed Differential Diagnosis (chest pain, altered mental status, abdominal pain women, abdominal pain men, vaginal bleeding, weakness, fever, dyspnea, syncope, headache, dizziness, GI bleed, back pain, seizure, CVA, palpatations, mental health, musculoskeletal)? @ -URI, pneumonia, strep pharyngitis, seasonal ALLERGIES, this is not an all inclusive list EKG interpreted by me (3pts min.). @ -As above X-rays interpreted by me (1pt min.). @ -Yes as above CT interpreted by me (1pt min.). @ -None done U/S interpreted by me (1pt. min.). @ -None done What testing was considered but not performed or refused? (CT, X-rays, U/S, labs)? Why? @ -None What meds were considered but not given or refused? Why? @ -None Did you discuss the management of the patient with other professionals (professionals i.e. , [facility], CHAIN MACHINE OPERATOR, lab, RT, psych nurse, administrator social welfare, family lawyer, teacher, landcare officer, rn case manager)? Give summary @ -No Was smoking cessation discussed for >3mins.? @ -No Was critical care preformed (if so, how long)? @ -No Were there social determinants of health that impacted care today? How? (Homelessness, low income, unemployed, alcoholism, drug addiction, transportation, low edu. Level, literacy, decrease access to med. care, fpc, rehab)? @ -No Was there de-escalation of care discussed even if they declined (Discuss DNR or withdrawal of care, Hospice)? DNR status @ -No What co-morbidities impacted this encounter? (DM, HTN, Smoking, COPD, CAD, Cancer, CVA, ARF, Chemo, Hep., AIDS, mental health diagnosis, sleep apnea, morbid obesity)? @ -None Was patient admitted / discharged? Hospital course, mention meds given and route, prescriptions, significant lab abnormalities, going to OR and other pertinent info. @ -Discharged Undiagnosed new problem with uncertain prognosis? @ -No Drug Therapy requiring intensive monitoring for toxicity (Heparin, Nitro, Insulin, Cardizem)? @ -No Were any procedures done? @ -No Diagnosis/symptom? @ -URI, seasonal ALLERGIES Acute, or Chronic, or Acute on Chronic? @ -Acute Uncomplicated (without systemic symptoms) or Complicated (systemic symptoms)? @ -Uncomplicated Side effects of treatment? @ -No Exacerbation, Progression, or Severe Exacerbation? @ -No Poses a threat to life or bodily function? How? (Chest pain, USA, SD, pneumonia, PE, COPD, DKA, ARF, appy, cholecystitis, CVA, Diverticulitis, Homicidal, Suici karime, threat to staff... and all critical care pts) @ -No - Lab Data Lab Results 11/10/22 11/10/22 Range/Units 10:16 10:16 Influenza Type A (PCR) Not Detected (Not Detectd) Influenza Type B (PCR) Not Detected (Not Detectd) RSV (PCR) Not Detected (Not Detectd) SARS-CoV-2 (PCR) Not Detected (Not Detectd) Group A Strep (PCR) NOT DETECTED (Not Detectd) - EKG Data EKG shows normal: sinus rhythm (Sinus rhythm with sinus arrhythmia, ventricular rate 77, IA interval 0.154, QRS 0.103, QTC 0.367, normal axis) Disposition Clinical Impression: Acute upper respiratory infection, Seasonal allergies Disposition: HOME SELF-CARE Condition: Good Instructions (If sedation given, give patient instructions): Upper Respiratory Infection (ED) Additional Instructions: Increase your fluid intake. Tylenol and Motrin as needed for body aches or pains. Try fluticasone (Flonase) and loratadine (Claritin) for allergies. Follow-up with the primary care doctor this week. Return to the emergency room with any new or concerning symptoms. Is patient prescribed a controlled substance at d/c from ED?: No Referrals: Chelsei Key MD [Primary Care Provider] - 1-2 days Time of Disposition: 11:16
--- NOTE | 2022-11-10 10:56 | XR ---
EXAMINATION TYPE: XR chest 2V DATE OF EXAM: 11/10/2022 COMPARISON: 06/09/2017 HISTORY: Shortness of breath TECHNIQUE: Frontal and lateral views of the chest are obtained. FINDINGS: Scattered senescent parenchymal changes noted. Hyperinflation compatible with COPD. No evidence for infiltrate. No evidence for atelectasis. Heart size is stable. Mediastinal structures are stable and grossly unremarkable. No evidence for hilar prominence. Degenerative changes dorsal spine. IMPRESSION: 1. No evidence for acute pulmonary disease.
[2022-11-10 11:34] VITALS: BP 135/64; PULSE 81; RESP 16; TEMP 98.1
== END 2022-11-10 11:34 | disposition home or self-care (01) ==
LOC: EC 09:45
DX: J06.9 Acute upper respiratory infection, unspecified (principal); J30.2 Other seasonal allergic rhinitis; E07.9 Disorder of thyroid, unspecified; Z79.890 Hormone replacement therapy; Z20.822 Contact with and (suspected) exposure to COVID-19
CPT/HCPCS: 71046; 87636; 87651; 93005; 99284

== ENCOUNTER → 2022-12-18 | Outpatient (CLI) | payer MEDICARE ==
--- NOTE | 2022-12-19 10:23 | PE ---
EXAMINATION TYPE: PET CT fusion skull to thigh DATE OF EXAM: 12/18/2022 CLINICAL INDICATION:Female, 72 years old with history of G30.9; TECHNIQUE: Following the intravenous administration of 9 mCi of F-18 FDG, images are performed from the brain. Images are reviewed on the computer in the coronal, axial, and sagittal planes. Reconst ructed rotating images are created on independent workstation and reviewed on the computer. A non-c ontrast CT is performed in conjunction with the PET scan. Glucose level 116 mg/dL COMPARISON: CT 01/02/2022, PET/CT None, FINDINGS: Average SUV values of the following regions: Frontal lobe: Right: 3.4 Left: 3.4 Parietal lobe: Right: 3.2 Left: 3.2 Occipital lobe: Right: 3.8 Left: 3.8 Temporal lobe: Right: 2.9 Left: 2.9 Other findings atherosclerosis of the intracranial vasculature. Scattered deep white matter changes. Right parietal surgical changes. Vascular clip in the right middle cranial fossa. IMPRESSION: Decreased metabolic activity within the parietal and temporal lobes compatible with Alzheimer's disea se.
== END | disposition home or self-care (01) ==
LOC: RADPETMAIN 14:00
PROVIDERS: ATTEND Internal Medicine
DX: G30.9 Alzheimer's disease, unspecified (principal)
CPT/HCPCS: 78815; A9552

== ENCOUNTER → 2023-02-01 | Outpatient (CLI) | payer MEDICARE ==
--- NOTE | 2023-02-03 07:52 | MM ---
Reason for Exam: Screening (asymptomatic). Last mammogram was performed 1 year(s) and 9 month(s) ago. Patient History: Menarche at age 10. First Full-Term at age 21. Left ovary removed at age 45. Right ovary removed at age 45. Hysterectomy at age 45. Postmenopausal. Endometrial cancer, age 45. Currently using Estrogen, beginning at age 45 for 25 years. Hormonal Contraceptives for 1 year, 6 months, from age 19 until age 21. Risk Values: Lizette 5 year model risk: 1.6%. NCI Lifetime model risk: 3.7%. Prior Study Comparison: 02/17/2017 Bilateral Screening Mammogram, [facility]. 03/21/2018 Bilateral Screening Mammogram, [facility]. 05/13/2021 Bilateral Screening Mammogram, [facility]. Tissue Density: The breast tissue is heterogeneously dense. This may lower the sensitivity of mammography. Findings: Analyzed By CAD. There is no suspicious group of microcalcifications or new suspicious mass in either breast. Stable chronic nodularity within the right breast. Benign appearing calcifications within both breasts. Overall Assessment: Benign, BI-RAD 2 Management: Screening Mammogram of both breasts in 1 year. A clinical breast exam by your physician is recommended on an annual basis and results should be correlated with mammographic findings. Note on Lizette scores and lifetime risk: 1. A Lizette score greater than 3% is considered moderate risk. If this is the case, consider specialist referral to assess eligibility for a risk reducing agent. If overall lifetime risk for the development of breast cancer is 20% or higher, the patient may qualify for future screening with alternating mammogram and breast MRI. Electronically signed and approved by: Noe Spears D.O.
== END | disposition home or self-care (01) ==
LOC: RADMAMWWP 06:43
PROVIDERS: ATTEND Internal Medicine
DX: Z12.31 Encounter for screening mammogram for malignant neoplasm of breast (principal); Z78.0 Asymptomatic menopausal state
CPT/HCPCS: 77063; 77067

== ENCOUNTER 2023-04-23 18:23 | Emergency (ER) | payer MEDICARE ==
[2023-04-23 19:27] VITALS: RESP 18
[2023-04-23 19:33] LABS: HCT 39.8 % (34.0-46.0); MCHC 32.7 g/dL (31.0-37.0); Mean Platelet Volume 8.1; Platelet Count 256 k/uL (150-450); RBC 4.06 m/uL (3.80-5.40); RDW 13.6 % (11.5-15.5); WBC 8.1 k/uL (3.8-10.6)
--- NOTE | 2023-04-23 19:45 | ED ---
Weakness HPI - General Chief complaint: Weakness Stated complaint: headache,lip droop,speech Time Seen by Provider: 04/23/23 18:32 Source: patient Mode of arrival: ambulatory Limitations: no limitations - History of Present Illness Initial comments: Patient is a 72 year old female who presents the emergency department for weakness. 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 She had surgery at [facility]. States since the surgery she has had intermittent headaches. They usually occur once or twice a month and there is pain for a co uple seconds to a minute at the top of her head towards the right. Today at 9 a.m. patient experienced this exact pain. It lasted for 20 seconds and resolved on its own. During this time noticed left-sided droop in patient's lips. States at this time her speech was slow but not slurred. Patient told her her arms and legs felt weak. She denied any focal weakness. Patient wanted to shower prior to coming to the emergency department. After her shower which lasted approximately 10 minutes her symptoms had resolved. Patient has not had any headache or other symptoms since episode. Her wanted her to get checked out in the emergency department tonight. She denies chest pain, shortness of breath, lightheadedness, dizziness, sweating, nausea, vomiting. Denies any numbness and tingling. Patient states she feels well now she denies weakness. Patient does have history of mild dementia. She follows with Dr. Barrera. - Related Data Home Medications Medication Instructions Recorded Confirmed estradioL [Estrace] 0.5 mg PO DAILY 08/19/21 04/23/23 Aspirin EC [Ecotrin Low Dose] 81 mg PO HS 04/23/23 04/23/23 Donepezil [Aricept] 5 mg PO DIRECTED 04/23/23 04/23/23 Ezetimibe [Zetia] 10 mg PO DAILY 04/23/23 04/23/23 Levothyroxine Sodium [Synthroid] 137 mcg PO DAILY 04/23/23 04/23/23 Pregabalin [Lyrica] 150 mg PO DAILY PRN 04/23/23 04/23/23 Rosuvastatin [Crestor] 20 mg PO DAILY 04/23/23 04/23/23 Allergies Allergy/AdvReac Type Severity Reaction Status Date / Time No Known Allergies Allergy Verified 04/23/23 20:15 Review of Systems ROS Statement: Those systems with pertinent positive or pertinent negative responses have been documented in the HPI. ROS Other: All systems not noted in ROS Statement are negative. Past Medical History Past Medical History: Cancer, Thyroid Disorder Additional Past Medical History / Comment(s): RUPTURED BRAIN ANEURYSM, OVARIAN CANCER History of Any Multi-Drug Resistant Organisms: None Reported Past Surgical History: Hysterectomy, Tonsillectomy Additional Past Surgical History / Comment(s): BSO, BRAIN SURGERY-HAS A CLIP IN, Past Anesthesia/Blood Transfusion Reactions: No Reported Reaction Past Psychological History: No Psychological Hx Reported Smoking Status: Never smoker Past Alcohol Use History: Occasional Past Drug Use History: None Reported - Past Family History Mother Family Medical History: No Reported History Father Family Medical History: Deep Vein Thrombosis (DVT) General Exam Limitations: no limitations General appearance: alert Head exam: Present: atraumatic, normocephalic, normal inspection Eye exam: Present: normal appearance, PERRL, EOMI. Absent: scleral icterus, conjunctival injection, periorbital swelling ENT exam: Present: normal oropharynx, TM's normal bilaterally Neck exam: Present: normal inspection, full ROM Respiratory exam: Present: normal lung sounds bilaterally. Absent: respiratory distress, wheezes, rales, rhonchi, stridor Cardiovascular Exam: Present: regular rate, normal rhythm, normal heart sounds. Absent: systolic murmur, diastolic murmur, rubs, gallop, clicks Extremities exam: Present: normal inspection, full ROM, normal capillary refill. Absent: tenderness Neurological exam: Present: alert Expanded Speech: Present: fluid speech Cranial nerves: EOM's Intact: Normal, Tongue Deviation: Normal, Facial Sensation: Normal, Facial Palsy with Forehead Movement: Normal, Facial Palsy without Forehead Movement: Normal Cerebellar function: Finger to Nose: Normal, Heel to Z[place]ler: Normal Sensory exam: Upper Extremity Light Touch: Normal, Lower Extremity Light Touch: Normal Motor strength exam: RUE: 5, LUE: 5, RLE: 5, LLE: 5 Eye Response: (4) open spontaneously Motor Response: (6) obeys commands Verbal Response: (5) oriented Psychiatric exam: Present: normal affect, normal mood Skin exam: Present: warm, dry, intact, normal color. Absent: rash Course Vital Signs 04/23/23 04/23/23 04/23/23 18:26 19:25 20:00 Temperature 98 F Pulse Rate 77 74 69 Respiratory 20 18 18 Rate Blood Pressure 116/61 109/54 111/53 O2 Sat by Pulse 99 96 99 Oximetry 04/23/23 04/23/23 04/23/23 20:39 21:00 22:20 Temperature 97.8 F Pulse Rate 68 69 79 Respiratory 18 18 18 Rate Blood Pressure 112/48 113/53 125/63 O2 Sat by Pulse 100 98 95 Oximetry Medical Decision Making - Medical Decision Making EKG taken at 19:03 interpreted by myself Sinus rhythm with sinus arrhythmia, no ST changes Vent rate 83, MD interval 151, QRS duration 97, QTC 43 Was pt. sent in by a medical professional or institution (, PA, LOSS PREVENTION REPRESENTATIVE, urgent care, hospital, or [facility]...) When possible be specific @ -No Did you speak to anyone other than the patient for history (EMS, parent, family, police, friend...)? What history was obtained from this source @ - helps provide history about symptoms early this morning Did you review nursing and triage notes (agree or disagree)? Why? @ -I reviewed and agree with nursing and triage notes Were old charts reviewed (outside hosp., previous admission, EMS record, old EKG, old radiological studies, urgent care reports/EKG's, [facility] records)? Report findings @ - reviewed carotid Doppler study from December 2021 showing atheromatous plaquing of the left carotid symstem without significant flow-limiting stenosis. Differential Diagnosis (chest pain, altered mental status, abdominal pain women, abdominal pain men, vaginal bleeding, weakness, fever, dyspnea, syncope, headache, dizziness, GI bleed, back pain, seizure, CVA, palpatations, mental health)? @ -Differential Weakness: Hypoglycemia, shock, sepsis, hyponatremia, anemia, infection, GA, ETOH, adverse medicine reaction, overdose, stroke, this is not meant to be an all-inclusive list. EKG interpreted by me (3pts min.). @ -As above X-rays interpreted by me (1pt min.). @ -None done CT interpreted by me (1pt min.). @ -No aneurysm or other acute process U/S interpreted by me (1pt. min.). @ -None done What testing was considered but not performed or refused? (CT, X-rays, U/S, labs)? Why? @ -None What meds were considered but not given or refused? Why? @ -None Did you discuss the management of the patient with other professionals (professionals i.e. , PA, LOSS PREVENTION REPRESENTATIVE, lab, RT, psych nurse, criminal justice social worker, commodity merchant, teacher, business practices officer, nurse case management)? Give summary @ -No Was smoking cessation discussed for >3mins.? @ -No Was critical care preformed (if so, how long)? @ -No Were there social determinants of health that impacted care today? How? (Homelessness, low income, unemployed, alcoholism, drug addiction, transportation, low edu. Level, literacy, decrease access to med. care, senior living, rehab)? @ -No Was there de-escalation of care discussed even if they declined (Discuss DNR or withdrawal of care, Hospice)? DNR status @ -No What co-morbidities impacted this encounter? (DM, HTN, Smoking, COPD, CAD, Cancer, CVA, ARF, Chemo, Hep., AIDS, mental health diagnosis, sleep apnea, morbid obesity)? @ -None Was patient admitted / discharged? Hospital course, mention meds given and route, prescriptions, significant lab abnormalities, going to OR and other pertinent info. @ -72-year-old presenting for weakness currently asymptomatic now. She has history of ruptured brain aneurysm. She has no headache currently. NIH is 0. Labs are unremarkable. Given symptoms this morning and history CT head without contrast and CT angiogram was obtained and interpreted by myself and radiology showing no aneurysm or other acute process. Results discussed with patient. There is some suspicion for TIA. Discussed with the patient and offered admission for further evaluation and management. Patient would like to go home. She is low risk based on ABCD2 score. We discussed very strict return parameters. Patient states she has carotid study with Dr. Barrera this month along with other dementia testing. Undiagnosed new problem with uncertain prognosis? @ -No Drug Therapy requiring intensive monitoring for toxicity (Heparin, Nitro, Insulin, Cardizem)? @ -No Were any procedures done? @ -No Diagnosis/symptom? @ -Weakness Acute, or Chronic, or Acute on Chronic? @ -acute Uncomplicated (without systemic symptoms) or Complicated (systemic symptoms)? @ -uncomplicated Side effects of treatment? @ -No Exacerbation, Progression, or Severe Exacerbation? @ -No Poses a threat to life or bodily function? How? (Chest pain, USA, GA, pneumonia, PE, COPD, DKA, ARF, appy, cholecystitis, CVA, Diverticulitis, Homicidal, Fried icidal, threat to staff... and all critical care pts) @No Dr. Dietrich is my attending - Lab Data Result diagrams: 04/23/23 19:13 04/23/23 19:13 Lab Results 04/23/23 04/23/23 04/23/23 Range/Units 19:13 19:13 19:13 WBC 8.1 (3.8-10.6) k/uL RBC 4.06 (3.80-5.40) m/uL Hgb 13.0 (11.4-16.0) gm/dL Hct 39.8 (34.0-46.0) % MCV 98.0 (80.0-100.0) fL MCH 32.0 (25.0-35.0) pg MCHC 32.7 (31.0-37.0) g/dL RDW 13.6 (11.5-15.5) % Plt Count 256 (150-450) k/uL MPV 8.1 Neutrophils % (Manual) 37 % Lymphocytes % (Manual) 43 % Monocytes % (Manual) 11 % Eosinophils % (Manual) 9 % Neutrophils # (Manual) 3.00 (1.3-7.7) k/uL Lymphocytes # (Manual) 3.48 (1.0-4.8) k/uL Monocytes # (Manual) 0.89 (0-1.0) k/uL Eosinophils # (Manual) 0.73 H (0-0.7) k/uL Nucleated RBCs 0 (0-0) /100 WBC Manual Slide Review Performed Large Platelets Present Polychromasia Present PT 9.7 (9.0-12.0) sec INR 0.9 (<1.2) APTT 23.1 (22.0-30.0) sec Sodium (137-145) mmol/L Potassium (3.5-5.1) mmol/L Chloride (98-107) mmol/L Carbon Dioxide (22-30) mmol/L Anion Gap mmol/L BUN (7-17) mg/dL Creatinine (0.52-1.04) mg/dL Est GFR (CKD-EPI)AfAm (>60 ml/min/1.73 sqM) Est GFR (CKD-EPI)NonAf (>60 ml/min/1.73 sqM) Glucose (74-99) mg/dL Plasma Lactic Acid Ru (0.7-2.0) mmol/L Calcium (8.4-10.2) mg/dL Magnesium (1.6-2.3) mg/dL Total Bilirubin (0.2-1.3) mg/dL AST (14-36) U/L ALT (4-34) U/L Alkaline Phosphatase (38-126) U/L Total Protein (6.3-8.2) g/dL Albumin (3.5-5.0) g/dL Urine Color Colorless Urine Appearance Cloudy H (Clear) Urine pH 5.0 (5.0-8.0) Ur Specific [place] 1.009 (1.001-1.035) Urine Protein Negative (Negative) Urine Glucose (UA) Negative (Negative) Urine Ketones Negative (Negative) Urine Blood Negative (Negative) Urine Nitrite Negative (Negative) Urine Bilirubin Negative (Negative) Urine Urobilinogen <2.0 (<2.0) mg/dL Ur Leukocyte Esterase Moderate H (Negative) Urine RBC 3 (0-5) /hpf Urine WBC 2 (0-5) /hpf Ur Squamous Epith Cells 14 H (0-4) /hpf Urine Bacteria Rare H (None) /hpf Urine Mucus Rare H (None) /hpf 04/23/23 04/23/23 Range/Units 19:13 19:13 WBC (3.8-10.6) k/uL RBC (3.80-5.40) m/uL Hgb (11.4-16.0) gm/dL Hct (34.0-46.0) % MCV (80.0-100.0) fL MCH (25.0-35.0) pg MCHC (31.0-37.0) g/dL RDW (11.5-15.5) % Plt Count (150-450) k/uL MPV Neutrophils % (Manual) % Lymphocytes % (Manual) % Monocytes % (Manual) % Eosinophils % (Manual) % Neutrophils # (Manual) (1.3-7.7) k/uL Lymphocytes # (Manual) (1.0-4.8) k/uL Monocytes # (Manual) (0-1.0) k/uL Eosinophils # (Manual) (0-0.7) k/uL Nucleated RBCs (0-0) /100 WBC Manual Slide Review Large Platelets Polychromasia PT (9.0-12.0) sec INR (<1.2) APTT (22.0-30.0) sec Sodium 141 (137-145) mmol/L Potassium 4.8 (3.5-5.1) mmol/L Chloride 105 (98-107) mmol/L Carbon Dioxide 30 (22-30) mmol/L Anion Gap 6 mmol/L BUN 21 H (7-17) mg/dL Creatinine 0.64 (0.52-1.04) mg/dL Est GFR (CKD-EPI)AfAm >90 (>60 ml/min/1.73 sqM) Est GFR (CKD-EPI)NonAf 88 (>60 ml/min/1.73 sqM) Glucose 104 H (74-99) mg/dL Plasma Lactic Acid Ru 1.5 (0.7-2.0) mmol/L Calcium 9.7 (8.4-10.2) mg/dL Magnesium 1.9 (1.6-2.3) mg/dL Total Bilirubin 0.3 (0.2-1.3) mg/dL AST 26 (14-36) U/L ALT 20 (4-34) U/L Alkaline Phosphatase 66 (38-126) U/L Total Protein 6.6 (6.3-8.2) g/dL Albumin 3.8 (3.5-5.0) g/dL Urine Color Urine Appearance (Clear) Urine pH (5.0-8.0) Ur Specific [place] (1.001-1.035) Urine Protein (Negative) Urine Glucose (UA) (Negative) Urine Ketones (Negative) Urine Blood (Negative) Urine Nitrite (Negative) Urine Bilirubin (Negative) Urine Urobilinogen (<2.0) mg/dL Ur Leukocyte Esterase (Negative) Urine RBC (0-5) /hpf Urine WBC (0-5) /hpf Ur Squamous Epith Cells (0-4) /hpf Urine Bacteria (None) /hpf Urine Mucus (None) /hpf Disposition Clinical Impression: Weakness Disposition: HOME SELF-CARE Condition: Good Instructions (If sedation given, give patient instructions): Transient Ischemic Attack (ED), Ischemic Stroke (DC) Additional Instructions: Please follow up with your neurologist in 1-2 days. Return to the emergency department if you experience new, concerning, or worsening symptoms, including well limited to worsening headache, facial droop, arm or leg weakness, speech changes, vomiting, dizziness. Is patient prescribed a controlled substance at d/c from ED?: No Referrals: Chelsie Key MD [Primary Care Provider] - 1-2 days
[2023-04-23 19:47] LABS: ALT 20 U/L (4-34); AST 26 U/L (14-36); African American GFR (CKD) >90 (>60 ml/min/1.73 sqM); Albumin 3.8 g/dL (3.5-5.0); Alkaline Phosphatase 66 U/L (38-126); Anion Gap 6 mmol/L; Appearance,Urine Cloudy (Clear); Bacteria,Urine Rare /hpf; Bilirubin,Urine Negative (Negative); Blood Urea Nitrogen 21 mg/dL (7-17); Blood,Urine Negative (Negative); Calcium 9.7 mg/dL (8.4-10.2); Carbon Dioxide 30 mmol/L (22-30); Chloride 105 mmol/L (98-107); Color,Urine Colorless; Glucose 104 mg/dL (74-99); Glucose,Urine (UA) Negative (Negative); Ketones,Urine Negative (Negative); Leukocyte Esterase,Urine Moderate (Negative); Magnesium 1.9 mg/dL (1.6-2.3); Mucus,Urine Rare /hpf; Nitrite,Urine Negative (Negative); Non-African American GFR(CKD) 88 (>60 ml/min/1.73 sqM); Potassium 4.8 mmol/L (3.5-5.1); Protein,Urine Negative (Negative); RBC,Urine 3 /hpf (0-5); Sodium 141 mmol/L (137-145); Specific Gravity,Urine 1.009 (1.001-1.035); Squamous Epithelial Cell,Urine 14 /hpf (0-4); Total Bilirubin 0.3 mg/dL (0.2-1.3); Total Protein 6.6 g/dL (6.3-8.2); Urobilinogen,Urine <2.0 mg/dL (<2.0); WBC,Urine 2 /hpf (0-5)
[2023-04-23 19:56] LABS: INR 0.9 (<1.2); Partial Thromboplastin Time 23.1 sec (22.0-30.0); Prothrombin Time 9.7 sec (9.0-12.0)
[2023-04-23 20:36] LABS: Eosinophils # (M) 0.73 k/uL (0-0.7); Lymphocytes # (M) 3.48 k/uL (1.0-4.8); Monocytes # (M) 0.89 k/uL (0-1.0); Neutrophils % (M) 37 %; Nucleated Red Blood Cells 0 /100 WBC (0-0); Total Cells Counted 100
[2023-04-23 20:37] LABS: Large Platelets Present
[2023-04-23 20:38] LABS: Polychromasia Present
--- NOTE | 2023-04-23 20:40 | CT ---
EXAMINATION TYPE: CT brain wo con DATE OF EXAM: 04/23/2023 HISTORY: headache. hx of brain aneurysm w/ clip. CT DLP: 1163.4 mGycm. Automated Exposure Control for Dose Reduction was Utilized. TECHNIQUE: CT scan of the head is performed without contrast. COMPARISON: 12/18/2022 FINDINGS: Redemonstrated right frontal craniotomy and inferior temporal craniectomy changes. There is no acute intracranial hemorrhage or midline shift identified. No mass or mass effect. No def inite acute attenuation defect. The globes are intact and the visualized sinuses are clear. IMPRESSION: No acute process.
[2023-04-23 20:44] VITALS: TEMP 97.8
--- NOTE | 2023-04-23 21:16 | CT ---
EXAMINATION TYPE: CT angio head DATE OF EXAM: 04/23/2023 8:16 PM COMPARISON: CT brain without contrast 04/23/2023 at 8:07 PM HISTORY: headache. hx of brain aneurysm w/ clip. TECHNIQUE: Departmental protocol. Performed with IV Contrast, patient injected with 65ml mL of Isovue 370. Automated exposure control for dose reduction was used. CT DLP: 699.7 mGycm FINDINGS: Redemonstrated right frontal craniotomy and inferior temporal craniectomy changes, and right suprasel lar aneurysm clip and focal encephalomalacia involving the inferior right frontal lobe. The anterior circulation is well opacified. There is no evidence of aneurysm, focal stricture, fillin g defect, or other abnormality. The posterior circulation is well opacified. There is no evidence of aneurysm, focal stricture, filli ng defect or other abnormality. Dural venous sinuses are patent. There is no intra-axial or extra-axial abnormal contrast enhancement. No other incidental findings. IMPRESSION: Negative for aneurysm.
--- NOTE | 2023-04-23 21:34 | XR ---
EXAMINATION: XR chest 2V: 04/23/2023 8:21 PM CLINICAL INDICATION: weakness TECHNIQUE: Departmental protocol COMPARISON: 11/10/2022 FINDINGS: EKG leads. The lungs are clear. The pleural spaces are negative. The cardiac silhouette is not enlarged. The remainder of the mediastinal silhouette is unremarkable. The skeletal structures and soft tissues are negative for acute findings. IMPRESSION: No acute process.
[2023-04-23 22:24] VITALS: BP 125/63; PULSE 79
== END 2023-04-23 22:28 | disposition home or self-care (01) ==
LOC: EC 18:23
DX: R53.1 Weakness (principal); E07.9 Disorder of thyroid, unspecified; Z79.890 Hormone replacement therapy; Z79.82 Long term (current) use of aspirin
CPT/HCPCS: 36415; 93005; 80053; 83605; 83735; 85025; 85610; 85730; 81001; 71046; 70496; 70450; 99285; Q9967

== ENCOUNTER → 2023-09-23 | Outpatient (CLI) | payer MEDICARE ==
[2023-09-23 16:26] LABS: ALT 24 U/L (8-44); AST 23 U/L (13-35); Albumin 4.1 g/dL (3.8-4.9); Albumin/Globulin Ratio 1.58 Ratio (1.60-3.17); Alkaline Phosphatase 76 U/L (41-126); Blood Urea Nitrogen 17.6 mg/dL (9.0-27.0); Calcium 9.4 mg/dL (8.7-10.3); Carbon Dioxide 27.3 mmol/L (21.6-31.8); Chloride 106 mmol/L (96-109); Chol/HDL Ratio 2.19 Ratio; Globulin 2.6 g/dL (1.6-3.3); Glucose 90 mg/dL (70-110); LDL Cholesterol,Calculated 61.8 mg/dL (0.0-131.0); Potassium 4.9 mmol/L (3.5-5.5); Sodium 142 mmol/L (135-145); Total Bilirubin 0.3 mg/dL (0.3-1.2); Total Protein 6.7 g/dL (6.2-8.2)
== END | disposition home or self-care (01) ==
LOC: LABWHC1 09:47
PROVIDERS: ATTEND Internal Medicine Endocrinology, Diabetes & Metabolism
DX: E11.9 Type 2 diabetes mellitus without complications (principal)
CPT/HCPCS: 36415; 80053; 80061; 82043; 82570; 83036; 84443

== ENCOUNTER 2023-11-07 12:43 | Emergency (ER) | payer MEDICARE ==
[2023-11-07 12:53] VITALS: BP 128/84; PULSE 67; RESP 18; TEMP 98.3
--- NOTE | 2023-11-07 13:27 | ED ---
URI HPI - General Chief Complaint: Upper Respiratory Infection Stated Complaint: Congestion, cough Time Seen by Provider: 11/07/23 12:52 Source: patient, RN notes reviewed, old records reviewed Mode of arrival: ambulatory Limitations: no limitations - History of Present Illness Initial Comments: This is a 73-year-old female to the ER for evaluation today. Patient presents today for evaluation regards to cough and congestion upper respiratory infection symptoms. Occasional fevers some chest pain and congestion concern for pneumonia. No travel history no sick contacts persistent chest congestion and weakness here in the ER. Patient does have fever MD Complaint: fever, cough -: hour(s) Severity: moderate Severity scale (1-10): 4 Quality: burning, sharp, dull Consistency: constant Improves With: nothing Worsens With: nothing Associated Symptoms: denies other symptoms - Related Data Home Medications Medication Instructions Recorded Confirmed estradioL [Estrace] 0.5 mg PO DAILY 08/19/21 04/23/23 Aspirin EC [Ecotrin Low Dose] 81 mg PO HS 04/23/23 04/23/23 Donepezil [Aricept] 5 mg PO DIRECTED 04/23/23 04/23/23 Ezetimibe [Zetia] 10 mg PO DAILY 04/23/23 04/23/23 Levothyroxine Sodium [Synthroid] 137 mcg PO DAILY 04/23/23 04/23/23 Pregabalin [Lyrica] 150 mg PO DAILY PRN 04/23/23 04/23/23 Rosuvastatin [Crestor] 20 mg PO DAILY 04/23/23 04/23/23 Previous Rx's Medication Instructions Recorded Amoxic-Pot Clav 875-125Mg 1 tab PO Q12HR #20 tablet 11/07/23 [Augmentin 875-125] Azithromycin [Zithromax] 500 mg PO DAILY #5 tab 11/07/23 Allergies Allergy/AdvReac Type Severity Reaction Status Date / Time No Known Allergies Allergy Verified 11/07/23 12:50 Review of Systems ROS Statement: Those systems with pertinent positive or pertinent negative responses have been documented in the HPI. ROS Other: All systems not noted in ROS Statement are negative. Past Medical History Past Medical History: Cancer, Thyroid Disorder Additional Past Medical History / Comment(s): RUPTURED BRAIN ANEURYSM, OVARIAN CANCER History of Any Multi-Drug Resistant Organisms: None Reported Past Surgical History: Hysterectomy, Tonsillectomy Additional Past Surgical History / Comment(s): BSO, BRAIN SURGERY-HAS A CLIP IN, Past Anesthesia/Blood Transfusion Reactions: No Reported Reaction Past Psychological History: No Psychological Hx Reported Smoking Status: Former smoker Past Alcohol Use History: Occasional Past Drug Use History: None Reported - Past Family History Mother Family Medical History: No Reported History Father Family Medical History: Deep Vein Thrombosis (DVT) General Exam Limitations: no limitations General appearance: alert, in no apparent distress, anxious Head exam: Present: atraumatic, normocephalic, normal inspection Eye exam: Present: normal appearance, PERRL, EOMI. Absent: scleral icterus, conjunctival injection, periorbital swelling ENT exam: Present: normal exam, mucous membranes moist Neck exam: Present: normal inspection. Absent: tenderness, meningismus, lymphadenopathy Respiratory exam: Present: normal lung sounds bilaterally. Absent: respiratory distress, wheezes, rales, rhonchi, stridor Cardiovascular Exam: Present: regular rate, normal rhythm, normal heart sounds. Absent: systolic murmur, diastolic murmur, rubs, gallop, clicks GI/Abdominal exam: Present: soft, normal bowel sounds. Absent: distended, tenderness, guarding, rebound, rigid Extremities exam: Present: normal inspection, full ROM, normal capillary refill. Absent: tenderness, pedal edema, joint swelling, calf tenderness Back exam: Present: normal inspection Neurological exam: Present: alert, oriented X3, CN II-XII intact Psychiatric exam: Present: normal affect, normal mood Skin exam: Present: warm, dry, intact, normal color. Absent: rash Course Vital Signs 11/07/23 12:47 Temperature 98.3 F Pulse Rate 67 Respiratory 18 Rate Blood Pressure 128/84 O2 Sat by Pulse 98 Oximetry - Reevaluation(s) Reevaluation #1: 11/07/23 Medical records reviewed Reevaluation #2: 11/07/23 Patient symptoms improved Reevaluation #3: 11/07/23 Patient informed of results and questions answered Reevaluation #4: Was pt. sent in by a medical professional or institution (, PA, INSIGHT LEADER, urgent care, hospital, or correction...) When possible be specific @ -no Did you speak to anyone other than the patient for history (EMS, parent, family, police, friend...)? What history was obtained from this source @ -no Did you review nursing and triage notes (agree or disagree)? Why? @ -agree Are old charts reviewed (outside hosp., previous admission, EMS record, old EKG, old radiological studies, urgent care reports/EKG's, correction records)? Report findings @ -yes Differential Diagnosis (chest pain, altered mental status, abdominal pain women, abdominal pain men, vaginal bleeding, weakness, fever, dyspnea, syncope, headache, dizziness, GI bleed, back pain, seizure, CVA, palpatations, mental health, musculoskeletal)? @ -prior EKG interpreted by me (3pts min.). @ -no X-rays interpreted by me (1pt min.). @ -yes negative for acute disease CT interpreted by me (1pt min.). @ -no U/S interpreted by me (1pt. min.). @ -no What testing was considered but not performed or refused? (CT, X-rays, U/S, labs)? Why? @ -none What meds were considered but not given or refused? Why? @ -none Did you discuss the management of the patient with other professionals (professionals i.e. , PA, INSIGHT LEADER, lab, RT, psych nurse, sexual assault social worker, creative writing english professor, teacher, aoc director intelligence officer, patient case manager)? Give summary @ -no Was smoking cessation discussed for >3mins.? @ -no Was critical care preformed (if so, how long)? @ -no Were there social determinants of health that impacted care today? How? (Homelessness, low income, unemployed, alcoholism, drug addiction, transportation, low edu. Level, literacy, decrease access to med. care, retirement, rehab)? @ -none Was there de-escalation of care discussed even if they declined (Discuss DNR or withdrawal of care, Hospice)? DNR status @ -no What co-morbidities impacted this encounter? (DM, HTN, Smoking, COPD, CAD, Cancer, CVA, ARF, Chemo, Hep., AIDS, mental health diagnosis, sleep apnea, morbid obesity)? @ -none Was patient admitted / discharged? Hospital course, mention meds given and route, prescriptions, significant lab abnormalities, going to OR and other pertinent info. @ - 73 female to the ER for evaluation today. Patient presented for evaluation of pneumonia patient has no recent travel history or sick contacts. Patient will be admitted for further evaluation management Discharge Undiagnosed new problem with uncertain prognosis? @ -no Drug Therapy requiring intensive monitoring for toxicity (Heparin, Nitro, Insulin, Cardizem)? @ -no Were any procedures done? @ -no Diagnosis/symptom? @ -Community-acquired pneumonia Acute, or Chronic, or Acute on Chronic? @ -Acute Uncomplicated (without systemic symptoms) or Complicated (systemic symptoms)? @ -Complicated Side effects of treatment? @ -no Exacerbation, Progression, or Severe Exacerbation? @ -exacerbation Poses a threat to life or bodily function? How? (Chest pain, USA, [place], pneumonia, PE, COPD, DKA, ARF, appy, cholecystitis, CVA, Diverticulitis, Homicidal, Suicidal, threat to staff... and all critical care pts) @ -yes with extremes of age Reevaluation #5: Differential Dyspnea: Coronary syndrome, arrhythmia, tamponade, asthma, COPD, pulmonary embolism, pneumonia, pneumothorax, pulmonary effusion, anaphylaxis, diabetic ketoacidosis, flailed chest, pulmonary contusion, diaphragmatic rupture, anemia, neuromuscular, this is not meant to be an all-inclusive list. Medical Decision Making - Medical Decision Making 73 female to the ER for evaluation today. Patient presented for evaluation of pneumonia patient has no recent travel history or sick contacts. Patient prefers discharge home for outpatient antibiotics - Lab Data Lab Results 11/07/23 Range/Units 13:01 Influenza Type A (PCR) Not Detected (Not Detectd) Influenza Type B (PCR) Not Detected (Not Detectd) RSV (PCR) Detected A (Not Detectd) SARS-CoV-2 (PCR) Not Detected (Not Detectd) - Radiology Data Radiology results: report reviewed (Chest x-ray is negative for acute disease), image reviewed Disposition Clinical Impression: Community acquired pneumonia Disposition: HOME SELF-CARE Condition: Good Instructions (If sedation given, give patient instructions): Community Acquired Pneumonia (ED) Prescriptions: Amoxic-Pot Clav 875-125Mg [Augmentin 875-125] 1 tab PO Q12HR #20 tablet Azithromycin [Zithromax] 500 mg PO DAILY #5 tab Is patient prescribed a controlled substance at d/c from ED?: No Referrals: Chelsie Key MD [Primary Care Provider] - 1-2 days Time of Disposition: 13:50
--- NOTE | 2023-11-07 13:49 | XR ---
EXAMINATION TYPE: XR chest 1V portable DATE OF EXAM: 11/07/2023 1:08 PM CLINICAL INDICATION:Female, 73 years old with history of cough; COMPARISON: 04/23/2023. TECHNIQUE: XR chest 1V portable Frontal view of the chest. FINDINGS: Lungs/Pleura: Right lower lung airspace opacities. There is no evidence of pleural effusion, left foc al consolidation, or pneumothorax. Pulmonary vascularity: Unremarkable. Heart/mediastinum: Cardiomediastinal silhouette is unremarkable. Musculoskeletal: No acute osseous pathology. Other findings: None IMPRESSION: Right lower lung airspace opacities correlate for pneumonia.
[2023-11-07] MEDS: AZITHROMYCIN 500 MG TAB PO STA (14:20)
[2023-11-07] MEDS: AMOXIC-POT CLAV 875MG STARTER PACK 2 TAB BTL PO STA (14:20)
[2023-11-07] MEDS: AMOXIC-POT CLAV 875-125MG 1 EACH TAB PO STA (14:20)
== END 2023-11-07 14:44 | disposition home or self-care (01) ==
LOC: EC 12:43
DX: J18.9 Pneumonia, unspecified organism (principal); Z87.891 Personal history of nicotine dependence
CPT/HCPCS: 71045; 87636; 99283

== ENCOUNTER → 2023-11-15 | Outpatient (CLI) | payer MEDICARE ==
--- NOTE | 2023-11-15 14:17 | XR ---
EXAMINATION TYPE: XR chest 2V DATE OF EXAM: 11/15/2023 1:46 PM CLINICAL INDICATION:Female, 73 years old with history of B33.8 OTHER SPECIFIED VIRAL DISEASES; [facility] COMPARISON: None TECHNIQUE: XR chest 2V Frontal and lateral views of the chest. FINDINGS: Lungs/Pleura: There is no evidence of pleural effusion, focal consolidation, or pneumothorax. Pulmonary vascularity: Unremarkable. Heart/mediastinum: Cardiomediastinal silhouette is unremarkable. Musculoskeletal: No acute osseous pathology. IMPRESSION: No acute cardiopulmonary disease/process.
== END | disposition home or self-care (01) ==
LOC: RADXRMAIN 13:23
PROVIDERS: ATTEND Internal Medicine
DX: B33.8 Other specified viral diseases (principal)
CPT/HCPCS: 71046

== ENCOUNTER → 2024-01-17 | Outpatient (CLI) | payer MEDICARE ==
--- NOTE | 2024-01-17 11:09 | XR ---
EXAMINATION TYPE: XR chest 2V DATE OF EXAM: 01/17/2024 10:49 AM CLINICAL INDICATION:Female, 73 years old with history of R07.82 intercostal pain; [facility] COMPARISON: Chest radiographs from 11/15/2023 TECHNIQUE: XR chest 2V Frontal and lateral views of the chest. FINDINGS: Lungs/Pleura: There is no evidence of pleural effusion, focal consolidation, or pneumothorax. Pulmonary vascularity: Unremarkable. Heart/mediastinum: Cardiomediastinal silhouette is unremarkable. Musculoskeletal: No acute osseous pathology. IMPRESSION: No acute cardiopulmonary disease/process.
== END | disposition home or self-care (01) ==
LOC: RADXRMAIN 10:28
PROVIDERS: ATTEND Internal Medicine
DX: R07.82 Intercostal pain (principal)
CPT/HCPCS: 71046

== ENCOUNTER → 2024-01-27 | Outpatient (CLI) | payer MEDICARE ==
--- NOTE | 2024-02-10 12:31 | CT ---
EXAMINATION TYPE: CT chest abdomen wo con DATE OF EXAM: 01/27/2024 COMPARISON: CTA abdomen 01/29/2022, chest 12/07/2022 HISTORY: 73-year-old female R1 0.9 right flank pain, right rib pain TECHNIQUE: Contiguous axial scanning of the chest and abdomen without IV contrast. Coronal and sagitt al reconstructions performed. CT DLP: 340.9 mGycm Automated exposure control for dose reduction was used. FINDINGS: CHEST: Heart normal size without pericardial effusion. Three-vessel coronary artery calcifications are prese nt. Mild atherosclerotic arch calcifications with conventional arch vessel branching anatomy. Scattered prominent but nonenlarged mediastinal lymph nodes measuring up to 8 mm in the lower paratra cheal region. No thoracic lymphadenopathy by CT size criteria. Mild to moderate emphysematous change. Subpleural reticular change in the visualized lower lungs with subpleural microcystic change as well as the lung bases. There is a 1.1 cm subpleural pulmonary nodu le anterior aspect of the lingula, axial image 36 this shows increasing fullness. Measured 9 mm on 12/07/2022. Otherwise, no consolidation or pleural effusion. ABDOMEN: Tiny hiatal hernia. Noncontrast appearance of the liver, gallbladder, adrenal glands, spleen, and pancreas show no gross abnormality. Punctate 2 mm nonobstructive right renal stone. Cortical defect upper pole right kidney is unchanged, possible sequela of prior vascular or infectious insult. Redemonstrated 1 cm cortical cyst posterior upper pole left kidney. Moderate atherosclerotic calcifications infrarenal abdominal aorta and iliac arteries. Moderate to se lisa segmental stenoses in the common iliac arteries. No dilated small bowel, free fluid, or free air. Mild stool burden. No pericolonic inflammatory aranda e. Pelvis not imaged. BONES: Accentuated mid to lower thoracic kyphosis. A superior endplate compression deformity of T4 is new fr om 12/07/2022 but still suspected chronic as there is no paravertebral soft tissue swelling. Changes re sult in 20% overall anterior height loss. 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 Hypertrophic facet arthropathy lumbar spine with grade 1 ante rolisthesis L4-L5 and L3-L4. Age indeterminate fractures through the right posterior 10th and 11th ribs, not seen previously. IMPRESSION: CHEST: 1. AGE-INDETERMINATE , NONDISPLACED FRACTURES THROUGH THE RIGHT POSTERIOR 10TH AND 11TH RIBS. NEW FRO M 12/07/2022. CORRELATE FOR ANY FOCAL PAIN HERE. 2. SUPERIOR ENDPLATE FRACTURE OF T4, ALSO NEW FROM 12/07/2022 AND SUSPECTED CHRONIC THERE IS NO PARA VERTEBRAL SOFT TISSUE SWELLING. THIS RESULTS IN ANTERIOR WEDGING WITH 20% OVERALL ANTERIOR HEIGHT LOS S. 3. THREE-VESSEL CORONARY ARTERY CALCIFICATIONS. 4. COPD WITH MILD TO MODERATE EMPHYSEMA. A 1.1 CM LINGULAR PULMONARY NODULE SHOWS SLIGHT INCREASING F ULLNESS, PREVIOUSLY MEASURING 9 MM. RECOMMEND 6 MONTH FOLLOW-UP CT CHEST TO REASSESS. ABDOMEN: 5. PUNCTATE 2 MM NONOBSTRUCTIVE RIGHT RENAL CALCULUS. 6. TINY HIATAL HERNIA. 7. ATHEROSCLEROTIC CHANGES IN THE ABDOMINAL AORTA. MODERATE TO SEVERE SEGMENTAL STENOSES IN THE BILAT ERAL COMMON ILIAC ARTERIES.
== END | disposition home or self-care (01) ==
LOC: RADCTMAIN 13:33
PROVIDERS: ATTEND Internal Medicine
DX: R07.81 Pleurodynia (principal); I25.10 Atherosclerotic heart disease of native coronary artery without angina pectoris; I70.0 Atherosclerosis of aorta; J44.9 Chronic obstructive pulmonary disease, unspecified; J43.9 Emphysema, unspecified; K44.9 Diaphragmatic hernia without obstruction or gangrene; N20.0 Calculus of kidney
CPT/HCPCS: 71250; 74150

== ENCOUNTER → 2024-02-15 | Outpatient (CLI) | payer MEDICARE ==
[2024-02-15 16:35] LABS: Blood Urea Nitrogen 17.5 mg/dL (9.0-27.0); Chol/HDL Ratio 2.09 Ratio; Glucose 103 mg/dL (70-110); LDL Cholesterol,Calculated 70.2 mg/dL (0.0-131.0)
[2024-02-15 16:36] LABS: ALT 23 U/L (8-44); AST 27 U/L (13-35); Albumin 4.3 g/dL (3.8-4.9); Albumin/Globulin Ratio 1.65 Ratio (1.60-3.17); Alkaline Phosphatase 93 U/L (41-126); Calcium 9.3 mg/dL (8.7-10.3); Carbon Dioxide 23.2 mmol/L (21.6-31.8); Chloride 104 mmol/L (96-109); Globulin 2.6 g/dL (1.6-3.3); Potassium 4.2 mmol/L (3.5-5.5); Sodium 141 mmol/L (135-145); Total Bilirubin 0.4 mg/dL (0.3-1.2); Total Protein 6.9 g/dL (6.2-8.2)
[2024-02-15 19:24] LABS: Urine Creatinine 96.2 mg/dL (28.0-217.0)
== END | disposition home or self-care (01) ==
LOC: LABWHC1 10:26
PROVIDERS: ATTEND Internal Medicine Endocrinology, Diabetes & Metabolism
DX: E03.8 Other specified hypothyroidism (principal); E11.9 Type 2 diabetes mellitus without complications
CPT/HCPCS: 36415; 80053; 80061; 82043; 82570; 84443

== ENCOUNTER → 2024-07-06 | Outpatient (CLI) | payer MEDICARE | END | disposition home or self-care (01) | LOC: LABWHC1 12:41 | PROVIDERS: ATTEND Internal Medicine Endocrinology, Diabetes & Metabolism | DX: E03.8 Other specified hypothyroidism (principal) | CPT/HCPCS: 36415; 84443 ==

== ENCOUNTER 2024-10-17 13:35 | Emergency (ER) | payer MEDICARE ==
[2024-10-17 13:46] VITALS: BP 134/81; PULSE 74; TEMP 98.5
[2024-10-17 14:00] VITALS: RESP 20
--- NOTE | 2024-10-17 14:32 | XR ---
EXAMINATION TYPE: XR chest 2V DATE OF EXAM: 10/17/2024 2:14 PM COMPARISON: Chest radiographs from 01/17/2024 CLINICAL INDICATION: Female, 74 years old with history of cough; TECHNIQUE: XR chest 2V Frontal and lateral views of the chest. FINDINGS: Lungs/Pleura: Prominent interstitial lung markings are seen scattered throughout the lungs. No eviden ce of focal consolidation, pneumothorax or pleural effusion. Pulmonary vascularity: Unremarkable. Heart/mediastinum: Cardiomediastinal silhouette is unremarkable. Musculoskeletal: No acute osseous pathology. IMPRESSION: Interstitial lung disease changes without acute pulmonary process. [facility], , 10/17/2024 2:29 PM
[2024-10-17 14:58] LABS: Influenza A Detected (Not Detectd); Influenza B Not Detected (Not Detectd); RSV Not Detected (Not Detectd)
--- NOTE | 2024-10-17 15:16 | ED ---
URI HPI - General Chief Complaint: Upper Respiratory Infection Stated Complaint: Congestion, cough Time Seen by Provider: 10/17/24 13:45 Source: patient, RN notes reviewed Mode of arrival: ambulatory Limitations: no limitations - History of Present Illness Initial Comments: 74-year-old female presents emergency department complaining cough cold symptoms. Patient has been sick the last 4 to 5 days. Patient states she is achy increased nasal congestion mild productive cough, possible fever. No sick contacts. Patient offers no other associated symptoms. - Related Data Home Medications Medication Instructions Recorded Confirmed estradioL [Estrace] 0.5 mg PO DAILY 08/19/21 04/23/23 Aspirin EC [Ecotrin Low Dose] 81 mg PO HS 04/23/23 04/23/23 Donepezil [Aricept] 5 mg PO DIRECTED 04/23/23 04/23/23 Ezetimibe [Zetia] 10 mg PO DAILY 04/23/23 04/23/23 Levothyroxine Sodium [Synthroid] 137 mcg PO DAILY 04/23/23 04/23/23 Pregabalin [Lyrica] 150 mg PO DAILY PRN 04/23/23 04/23/23 Rosuvastatin [Crestor] 20 mg PO DAILY 04/23/23 04/23/23 Previous Rx's Medication Instructions Recorded Amoxic-Pot Clav 875-125Mg 1 tab PO Q12HR #20 tablet 11/07/23 [Augmentin 875-125] Azithromycin [Zithromax] 500 mg PO DAILY #5 tab 11/07/23 Allergies Allergy/AdvReac Type Severity Reaction Status Date / Time No Known Allergies Allergy Verified 10/17/24 13:46 Review of Systems ROS Statement: Those systems with pertinent positive or pertinent negative responses have been documented in the HPI. ROS Other: All systems not noted in ROS Statement are negative. Past Medical History Past Medical History: Cancer, CVA/TIA, Thyroid Disorder Additional Past Medical History / Comment(s): RUPTURED BRAIN ANEURYSM, OVARIAN CANCER History of Any Multi-Drug Resistant Organisms: None Reported Past Surgical History: Hysterectomy, Tonsillectomy Additional Past Surgical History / Comment(s): BSO, BRAIN SURGERY-HAS A CLIP IN, Past Anesthesia/Blood Transfusion Reactions: No Reported Reaction Past Psychological History: No Psychological Hx Reported Smoking Status: Former smoker Past Alcohol Use History: Occasional Past Drug Use History: None Reported - Past Family History Mother Family Medical History: No Reported History Father Family Medical History: Deep Vein Thrombosis (DVT) General Exam Limitations: no limitations General appearance: alert, in no apparent distress Head exam: Present: atraumatic, normocephalic, normal inspection Eye exam: Present: normal appearance, PERRL, EOMI. Absent: scleral icterus, conjunctival injection, periorbital swelling ENT exam: Present: normal exam, normal oropharynx, mucous membranes moist Neck exam: Present: normal inspection, full ROM. Absent: tenderness, meningismus, lymphadenopathy Respiratory exam: Present: normal lung sounds bilaterally. Absent: respiratory distress, wheezes, rales, rhonchi, stridor Cardiovascular Exam: Present: regular rate, normal rhythm, normal heart sounds. Absent: systolic murmur, diastolic murmur, rubs, gallop, clicks Course Vital Signs 10/17/24 10/17/24 13:42 13:57 Temperature 98.5 F Pulse Rate 74 Respiratory 16 20 Rate Blood Pressure 134/81 O2 Sat by Pulse 99 Oximetry Medical Decision Making - Medical Decision Making Was pt. sent in by a medical professional or institution (, PA, DIRECTOR OF GLOBAL SALES, urgent care, hospital, or alf...) When possible be specific @ -No Did you speak to anyone other than the patient for history (EMS, parent, family, police, friend...)? What history was obtained from this source @ -No Did you review nursing and triage notes (agree or disagree)? Why? @ -I reviewed and agree with nursing and triage notes Were old charts reviewed (outside hosp., previous admission, EMS record, old EKG, old radiological studies, urgent care reports/EKG's, alf records)? Report findings @ -No old charts were reviewed Differential Diagnosis (chest pain, altered mental status, abdominal pain women, abdominal pain men, vaginal bleeding, weakness, fever, dyspnea, syncope, headache, dizziness, GI bleed, back pain, seizure, CVA, palpatations, mental health, musculoskeletal)? @ -COVID 19, RSV, influenza, pneumonia, acute bronchitis, URI, this list is not all inclusive EKG interpreted by me (3pts min.). @ -None X-rays interpreted by me (1pt min.). @ -Chest x-ray shows no acute cardiopulmonary process. CT interpreted by me (1pt min.). @ -None done U/S interpreted by me (1pt. min.). @ -None done What testing was considered but not performed or refused? (CT, X-rays, U/S, lab s)? Why? @ -None What meds were considered but not given or refused? Why? @ -None Did you discuss the management of the patient with other professionals (professionals i.e. DrCarolann, PA, DIRECTOR OF GLOBAL SALES, lab, RT, psych nurse, social work therapist, associate director of nursing, teacher, structural engineering drafting officer, casework specialist)? Give summary @ -No Was smoking cessation discussed for >3mins.? @ -No Was critical care preformed (if so, how long)? @ -No Were there social determinants of health that impacted care today? How? (Homelessness, low income, unemployed, alcoholism, drug addiction, transportation, low edu. Level, literacy, decrease access to med. care, [facility], rehab)? @ -No Was there de-escalation of care discussed even if they declined (Discuss DNR or withdrawal of care, Hospice)? DNR status @ -No What co-morbidities impacted this encounter? (DM, HTN, Smoking, COPD, CAD, Cancer, CVA, ARF, Chemo, Hep., AIDS, mental health diagnosis, sleep apnea, morbid obesity)? @ -None Was patient admitted / discharged? Hospital course, mention meds given and route, prescriptions, significant lab abnormalities, going to OR and other pertinent info. @Discharge patient's x-ray is negative patient is influenza A positive symptoms been present for 5 days. Undiagnosed new problem with uncertain prognosis? @ -No Drug Therapy requiring intensive monitoring for toxicity (Heparin, Nitro, Insulin, Cardizem)? @ -No Were any procedures done? @ -No Diagnosis/symptom? @ -Influenza A Acute, or Chronic, or Acute on Chronic? @ -Acute Uncomplicated (without systemic symptoms) or Complicated (systemic symptoms)? @ -Uncomplicated Side effects of treatment? @ -No Exacerbation, Progression, or Severe Exacerbation? @ -No Poses a threat to life or bodily function? How? (Chest pain, [place], [place], pneumonia, PE, COPD, DKA, ARF, appy, cholecystitis, CVA, Diverticulitis, Homicidal, Suicidal, threat to staff... and all critical care pts) @ -No - Lab Data Lab Results 10/17/24 Range/Units 14:09 Influenza Type A (PCR) Detected A (Not Detectd) Influenza Type B (PCR) Not Detected (Not Detectd) RSV (PCR) Not Detected (Not Detectd) SARS-CoV-2 (PCR) Not Detected (Not Detectd) Disposition Clinical Impression: Influenza A Disposition: HOME SELF-CARE Condition: Stable Instructions (If sedation given, give patient instructions): Influenza (ED) Additional Instructions: Please return to the Emergency Department if symptoms worsen or any other concerns. Is patient prescribed a controlled substance at d/c from ED?: No Referrals: Chelsie Key MD [Primary Care Provider] - 1-2 days Time of Disposition: 15:16
== END 2024-10-17 15:46 | disposition home or self-care (01) ==
LOC: EC 13:35
DX: J10.1 Influenza due to other identified influenza virus with other respiratory manifestations (principal); Z87.891 Personal history of nicotine dependence; Z86.73 Personal history of transient ischemic attack (TIA), and cerebral infarction without residual deficits
CPT/HCPCS: 71046; 87636; 99283